=== PATIENT | female | born 1945 | race Hispanic/Latino ===

== ENCOUNTER 2019-09-13 21:29 | Inpatient (IN) | payer MEDICARE ==
[2019-09-13] MEDS ORDERED: MELATONIN 5 MG TAB PO PRN (22:09)
[2019-09-13] MEDS ORDERED: hydrOXYzine HCL 25 MG TAB PO PRN (22:19)
--- NOTE | 2019-09-14 06:54 | History and Physical Report ---
GP History & Physical - History of Present Illness Date of admission: 09/14/19 Date of Examination: 09/14/19 Reason for Admission: Danger to self Chief Complaint: Depression History of Present Illness: Per Communication Nurse: 74 Y/O WF A&OX4 present with worsening anxiety and depression due to being isolated at [facility] regarding COVID-19 pandemic. Per referral source, pt has been for a long time having issue with anxiety until COVID that warrants isolation of residential residents which exacerbates her anxiety. Pt wishes at the ED that she can due to her medical comorbidities. Pt endorses having Advance Directive and her DNR status noted in the medical record. Reports her legal guardian is her sister, Geri Luis [phone]. Pt feels hopeless and no motivation. Pt arrived the unit with nasal Canula in place. The EMS transporters reports she has been on O2 at 2 liters until they took her off it in the parking lot when bringing her up. O2Sat.fluctuating between 89 and 91 on room air. O2Sat 99% when placed back on O2 at 3 liters. Pt noted with PMH of COPD, CHF, AFIB, SOB, Dementia, HTN, Pancreas Cyst, and Pneumonia. Calm and cooperative during interview. Denied to the report writer SI and HI. Denies pain. No behavioral issue noted or reported. We will continue to monitor. HPI Patient is a 74-year-old female with past psychiatric history of anxiety and depression in past medical history of COPD status post currently on oxygen and other multiple comorbidities who presents today from residential with chief complaint of worsening anxiety and depression. Patient reported being at the residential and isolated from everything has made her depression to worsen with increasing anxiety. She reports poor sleep in the last couple of days, but normal appetite and she denies SI and HI. PAST PSYCHIATRIC HISTORY Diagnoses: Anxiety and Depression Suicide attempts or Self-harm behavior: none reported Prior psychiatric hospitalizations: Not available Substance Abuse history: none reported Previous psychiatric medications tried: Yes Outpatient treatment: none reported PAST MEDICAL HISTORY: COPD, CHF, AFIB and SOB Family Psychiatric History: None reported or documented SOCIAL HISTORY Marital Status: Living Arrangements: correction Employment Status: disabled Access to guns/weapons: none reported Education: High school History of Abuse: none reported Legal History: none reported REVIEW OF SYSTEMS Constitutional: Negative for weight loss ENT: Negative for stridor Respiratory: Shortness of breath due to COPD on Oxygen 3L nasal All other systems reviewed and are negative MENTAL STATUS EXAMINATION General Appearance and Behavior: Age appropriate, poor/fair/good hygiene, wearing appropriate clothes, good eye contact, cooperative with questioning and polite Cooperation: Participating/engaged Psychomotor Behavior: unremarkable and within normal limits Mood: "Fair, not really good" Affect and affective range:anxious, depresse Thought Process: Fluent/Logical Thought Content: Within reality Speech: Normal volume, Regular rate and rhythm Intellectual Functioning: Average Suicidal Ideation: Suicidal Homicidal Ideation: Homicidal Impulse Control: Unimpaired Insight and Judgment: Normal insight and judgment Memory: Normal Attention: Normal Orientation: Alert, oriented Assessment and Plan - Psychiatric problem (1) MDD (major depressive disorder) Current Visit: Yes Status: Acute (2) Generalized anxiety disorder Current Visit: Yes Status: Acute Treatment Plan: Patient started on Prozac and Klonopin .25mg once a day Patient will be admitted for inpatient psychiatric evaluation, medication adjustment and close monitoring The patient's behavior, mood, sleep and appetite will be closely monitored. Patient will be enrolled in individual and group therapeutic sessions and encouraged to attend. Patient will be provided with a safe and structured environment. Patient's physical health needs will be addressed by the Hospitalist. Hospitalist Consulted Labs including CBC, CMP, Lipid profile and Hemoglobin A1C ordered Social Assessment will be completed and the Application Spec will work with patient and family to ensure a suitable and safe disposition Medication adjustment will be made as clinically indicated Usual Wellness Holiness/Preservation: - Start Melatonin 5 mg po QHS to promote circadian rhythm - Start [place]-3 for brain health, reduce impulsivity, and as adjunctive treatment for mood disorder, continue upon discharge given overall benefits. The patient agreed on the treatment plan, understood the risk, benefit, alternative treatment, potential consequence of no treatment, and gave informed consent. This is an acknowledgement statement that ISSA CARRILLO is a 74 year old F who requires inpatient psychiatric admission for treatment which could reasonably be expected to improve the patient's condition for Estimated period of time patient will need to remain in the hospital: [7 ] Plan for post-hospital care: [ correction] Legal Status: Voluntary Patient Problems: Current Active Problems Generalized anxiety disorder (Acute) MDD (major depressive disorder) (Acute) Reaction to Hospitalization: Accepting Medications and Allergies Allergies Allergy/AdvReac Type Severity Reaction Status Date / Time No Known Drug Allergies Allergy Unknown Verified 09/13/19 21:50 Home Medications Medication Instructions Recorded Confirmed Last Taken Type Albuterol INH(or & Nicu Only) 90 mcg INHALATION Q4H PRN 09/14/19 09/14/19 Unknown History [ProAir HFA Inhaler] Budesonide [Pulmicort Respules] 0.5 neb BID 09/14/19 09/14/19 Unknown History Digoxin 250 mcg PO DAILY 09/14/19 09/14/19 Unknown History Docusate Sodium [Colace CAP] 100 mg PO BID 09/14/19 09/14/19 Unknown History FLUoxetine HCL [PROzac] 40 mg PO QDAY 09/14/19 09/14/19 Unknown History Flecainide [Tambocor] 50 mg PO BID 09/14/19 09/14/19 Unknown History Gabapentin 300 mg PO TID 09/14/19 09/14/19 Unknown History Metoprolol [Lopressor TAB] 50 mg PO DAILY 09/14/19 09/14/19 Unknown History QUEtiapine 50 mg PO HS 09/14/19 09/14/19 Unknown History methIMAzole [Tapazole] 5 mg PO DAILY 09/14/19 09/14/19 Unknown History traZODone 50 mg PO HS 09/14/19 09/14/19 Unknown History Active Meds: Active Medications Flecainide Acetate (Tambocor) 50 mg PO Q12HR [facility] Fluoxetine HCl (Prozac) 40 mg PO QDAY [facility] Gabapentin (Gabapentin) 300 mg PO TID [facility] Hydroxyzine HCl (Atarax) 25 mg PO Q6H PRN PRN Reason: Itching Melatonin (Melatonin) 5 mg PO QHS PRN PRN Reason: Sleep Methimazole (Tapazole) 5 mg PO DAILY [facility] Metoprolol Succinate (Metoprolol Xl) 50 mg PO BID [facility] Quetiapine Fumarate (Seroquel) 50 mg PO QHS [facility] Trazodone HCl (Desyrel) 50 mg PO QHS [facility] Results - Results Labs/Vitals: Last Vital Signs Temp 97.6 F 09/14/19 01:54 Pulse 59 L 09/14/19 01:54 Resp 18 09/14/19 01:54 BP 110/60 09/14/19 01:54 Pulse Ox 91 05/19/20 01:54 Physical Examination - Constitutional Vitals: Vital Signs Temp Pulse Resp BP Pulse Ox 97.6 F 59 L 18 110/60 91 09/14/19 01:54 09/14/19 01:54 09/14/19 01:54 09/14/19 01:54 09/14/19 01:54 Temperature -Last 24 Hours Temperature 97.6 F Mental Status Exam - Vital signs Last Vital Signs Temp 97.6 F 09/14/19 01:54 Pulse 59 L 09/14/19 01:54 Resp 18 09/14/19 01:54 BP 110/60 09/14/19 01:54 Pulse Ox 91 09/14/19 01:54 Assessment and Plan - Psychiatric problem (1) MDD (major depressive disorder) Current Visit: Yes Status: Acute (2) Generalized anxiety disorder Current Visit: Yes Status: Acute Physician Certification - Certification Statement Physician Certification Statement: This is an acknowledgement statement that ISSA CARRILLO is a 74 year old F who requires inpatient psychiatric admission for treatment which could reasonably be expected to improve the patient's condition for Estimated period of time patient will need to remain in the hospital: [ ] Plan for post-hospital care: [ ]
[2019-09-14 07:30] LABS: Basophils % (Auto) 0.7 % (0.0-1.8); Eosinophils # (Auto) 0.3 K/mm3 (0.0-0.4); Eosinophils % (Auto) 3.5 % (0.0-4.3); Hematocrit 40.7 % (30.3-42.9); Hemoglobin 13.6 gm/dl (10.1-14.3); Lymphocytes # (Auto) 1.8 K/mm3 (1.2-5.4); Lymphocytes % (Auto) 25.4 % (13.4-35.0); Mean Corpuscular HGB Conc 34 % (30-34); Mean Corpuscular Volume 88 fl (79-97); Monocytes # (Auto) 0.6 K/mm3 (0.0-0.8); Platelet Count 232 K/mm3 (140-440); Red Cell Distribution Width 14.2 % (13.2-15.2)
[2019-09-14 07:54] LABS: Alanine Aminotransferase 11 units/L (7-56); Albumin 3.8 g/dL (3.9-5); BUN/Creatinine Ratio 12; Blood Urea Nitrogen 11 mg/dL (7-17); Calcium 9.6 mg/dL (8.4-10.2); Chol/HDL Ratio 4.62 %; HDL Cholesterol 43 mg/dL (40-59); Hemolysis Index 8; LDL Cholesterol,Direct 141 mg/dL (50-130)
[2019-09-14] MEDS ORDERED: FLUoxetine 20 MG CAP PO SCH (10:00)
[2019-09-14] MEDS: FLECAINIDE 100 MG TAB PO SCH ×2 (11:29→21:31)
[2019-09-14] MEDS: GABAPENTIN 300 MG CAP PO SCH ×3 (11:29→21:30)
[2019-09-14] MEDS: METOPROLOL SUCCINATE XL 50 MG TAB PO SCH ×2 (11:30→21:29)
[2019-09-14] MEDS: FUROSEMIDE 20 MG TAB PO SCH (11:30)
[2019-09-14] MEDS: methIMAzole 5 MG TAB PO SCH (11:31)
[2019-09-14] MEDS ORDERED: clonazePAM 0.5 MG TAB PO PRN (12:00)
[2019-09-14] MEDS ORDERED: hydrOXYzine HCL 25 MG TAB PO SCH (12:00)
[2019-09-14] MEDS: POTASSIUM CHLORIDE ER 10 MEQ TAB PO SCH (13:05)
[2019-09-14] MEDS: hydrOXYzine HCL 25 MG TAB PO SCH ×2 (13:05→21:30)
[2019-09-14] MEDS: FLUoxetine 20 MG/5 ML ORAL LIQD PO SCH (13:06)
[2019-09-14] MEDS: OMEGA-3 FATTY ACIDS/FISH OIL 1 GRAM CAP PO SCH ×2 (13:13→21:28)
--- NOTE | 2019-09-14 14:38 | Consultation ---
History of Present Illness - Reason for Consult Consult date: 09/14/19 Hypertension, COPD Requesting physician: LEAH LINDSAY - History of Present Illness Patient is a 74-year-old female with past psychiatric history of anxiety and depression, medical history of hypertension, hyperthyroidism and COPD. She has been admitted to GeriPsych Unit with chief complaint of worsening anxiety and depression. Patient reported being at the assisted and isolated from everything has made her depression to worsen with increasing anxiety. The hospitalist service has been consulted for management of medical comorbidities: hypertension, COPD. Currently denies headache, chest pain or shortness of breath. Past History Past Medical History: COPD, hypertension, hypothyroidism Past Surgical History: No surgical history Social history: Family history: no significant family history Medications and Allergies Allergies Allergy/AdvReac Type Severity Reaction Status Date / Time No Known Drug Allergies Allergy Unknown Verified 09/13/19 21:50 Home Medications Medication Instructions Recorded Confirmed Last Taken Type Albuterol INH(or & Nicu Only) 90 mcg INHALATION Q4H PRN 09/14/19 09/14/19 Unknown History [ProAir HFA Inhaler] Budesonide [Pulmicort Respules] 0.5 neb BID 09/14/19 09/14/19 Unknown History Digoxin 250 mcg PO DAILY 09/14/19 09/14/19 Unknown History Docusate Sodium [Colace CAP] 100 mg PO BID 09/14/19 09/14/19 Unknown History FLUoxetine HCL [PROzac] 40 mg PO QDAY 09/14/19 09/14/19 Unknown History Flecainide [Tambocor] 50 mg PO BID 09/14/19 09/14/19 Unknown History Gabapentin 300 mg PO TID 09/14/19 09/14/19 Unknown History Metoprolol [Lopressor TAB] 50 mg PO DAILY 09/14/19 09/14/19 Unknown History QUEtiapine 50 mg PO HS 09/14/19 09/14/19 Unknown History methIMAzole [Tapazole] 5 mg PO DAILY 09/14/19 09/14/19 Unknown History traZODone 50 mg PO HS 09/14/19 09/14/19 Unknown History Active Meds: Active Medications Clonazepam (Klonopin) 0.25 mg PO QDAY PRN PRN Reason: Anxiety Fish Oil (Fish Oil) 2,000 mg PO BID [facility] Last Admin: 09/14/19 13:13 Dose: 2,000 mg Documented by: Flecainide Acetate (Tambocor) 50 mg PO Q12HR [facility] Last Admin: 09/14/19 11:29 Dose: 50 mg Documented by: Fluoxetine HCl (Prozac) 20 mg PO QDAY [facility] Last Admin: 09/14/19 13:06 Dose: 20 mg Documented by: Furosemide (Lasix) 20 mg PO QDAY [facility] Last Admin: 09/14/19 11:30 Dose: 20 mg Documented by: Gabapentin (Gabapentin) 300 mg PO TID [facility] Last Admin: 09/14/19 14:20 Dose: 300 mg Documented by: Hydroxyzine HCl (Atarax) 25 mg PO TID [facility] Last Admin: 09/14/19 13:05 Dose: 25 mg Documented by: Loperamide HCl (Imodium) 2 mg PO Q2H PRN PRN Reason: Diarrhea Melatonin (Melatonin) 5 mg PO QHS PRN PRN Reason: Sleep Methimazole (Tapazole) 5 mg PO DAILY [facility] Last Admin: 09/14/19 11:31 Dose: 5 mg Documented by: Metoprolol Succinate (Metoprolol Xl) 50 mg PO BID [facility] Last Admin: 09/14/19 11:30 Dose: 50 mg Documented by: Potassium Chloride (K-Dur) 10 meq PO QDAY [facility] Last Admin: 09/14/19 13:05 Dose: 10 meq Documented by: Tiotropium [place] (Spiriva) 1 puff IH Q24HRT [facility] Review of Systems All systems: negative (No headache, no fever, no abd pain. All other systems reviewed and are negative) Exam - Physical Exam Narrative exam: GEN: Not in acute distress, sitting up in chair HEENT: Normocephalic, atraumatic, Neck: supple, No JVD Lungs: Clear to auscultation bilaterally, heart;S1 and S2 reg, no murmurs, rubs or gallop Abd:soft, non tender, non distended, normal bowel sounds, Ext: No edema, no clubbing, no cyanosis, Neuro: Awake,alert,oriented X3 , no focal signs, - Constitutional Vitals: Temp Pulse Resp BP Pulse Ox 97.6 F 59 L 18 110/60 91 09/14/19 01:54 09/14/19 01:54 09/14/19 01:54 09/14/19 01:54 09/14/19 01:54 Results - Labs CBC & Chem 7: 09/14/19 07:19 09/17/19 04:39 Labs: Abnormal lab results 09/14/19 09/14/19 Range/Units 07:19 07:19 [place] % (Auto) 9.0 H (0.0-7.3) % Chloride 97.5 L (98-107) mmol/L Glucose 104 H (65-100) mg/dL Albumin 3.8 L (3.9-5) g/dL LDL Cholesterol Direct 141 H (50-130) mg/dL Assessment and Plan Anxiety and Depression. Admitted to GeriPsych Unit Psychiatry attending Hypertension Resume home meds Monitor BP COPD Monitor for symptoms Hyperthyroidism On Tapazole Patient on Flecainide so likely has history cardiac arrhythmia Thanks for consulting us, Dr. Salcido
[2019-09-14] MEDS: LOPERAMIDE 2 MG CAP PO PRN (15:56)
[2019-09-14] MEDS: TIOTROPIUM 18 MCG CAP INHALATION IH SCH (15:57)
[2019-09-14] MEDS ORDERED: traZODone 50 MG TAB PO SCH (22:00)
[2019-09-14] MEDS ORDERED: QUEtiapine 25 MG TAB PO SCH (22:00)
[2019-09-15] MEDS: LOPERAMIDE 2 MG CAP PO PRN ×2 (04:50→11:48)
--- NOTE | 2019-09-15 06:58 | Progress Note ---
Subjective Date of service: 09/15/19 Principal diagnosis: MDD (major depressive disorder), General Anxiety Subjective Comment: Nurse Note: Pt is observed in the activity room interacting with peers but maintaining social distancing. Pt c/o feeling slightly anxious but shows no s/s of distress. She is able to verbalize he needs. She continues on O2 via n/c. Will continue to monitor q 15 min for safety. Psych Progres Pleasant Miss Cavazos was interviewed by me this AM. She complaints her anxiety and nerves acting up this AM, says current meds dont seem to be helping. She reports constant fear, cause unknown. and also complains about hearing things. She reports sleep has good but concerned her medication might also be causing diarrhea Reason for continuing inpatient psychiatric hospitalization: Persistent anxiety, hearing things and depressed mood. Concern for medication induced diarrhea. Will adjust meds MENTAL STATUS EXAMINATION General Appearance and Behavior: Age appropriate, poor/fair/good hygiene, wearing appropriate clothes, good eye contact, cooperative with questioning and polite Cooperation: Participating/engaged Psychomotor Behavior: unremarkable and within normal limits Mood: "Fair, not really good" Affect and affective range:anxious, depresse Thought Process: Fluent/Logical Thought Content: Within reality Speech: Normal volume, Regular rate and rhythm Intellectual Functioning: Average Suicidal Ideation: Suicidal Homicidal Ideation: Homicidal Impulse Control: Unimpaired Insight and Judgment: Normal insight and judgment Memory: Normal Attention: Normal Orientation: Alert, oriented Assessment and Plan - Psychiatric problem (1) MDD (major depressive disorder) Current Visit: Yes Status: Acute (2) Generalized anxiety disorder Current Visit: Yes Status: Acute Treatment Plan: Klonopin .25mg BID. Hospitalist to see patient for diarrhea consult Patient will be admitted for inpatient psychiatric evaluation, medication adjustment and close monitoring The patient's behavior, mood, sleep and appetite will be closely monitored. Patient will be enrolled in individual and group therapeutic sessions and encouraged to attend. Patient will be provided with a safe and structured environment. Patient's physical health needs will be addressed by the Hospitalist. Hospitalist Consulted Labs including CBC, CMP, Lipid profile and Hemoglobin A1C ordered Social Assessment will be completed and the School Age Program Teacher will work with patient and family to ensure a suitable and safe disposition Medication adjustment will be made as clinically indicated Usual Wellness Hinduism/Preservation: - Start Melatonin 5 mg po QHS to promote circadian rhythm - Start [place]-3 for brain health, reduce impulsivity, and as adjunctive treatm ent for mood disorder, continue upon discharge given overall benefits. The patient agreed on the treatment plan, understood the risk, benefit, alternative treatment, potential consequence of no treatment, and gave informed consent. This is an acknowledgement statement that ISSA CARRILLO is a 74 year old F who requires inpatient psychiatric admission for treatment which could reasonably be expected to improve the patient's condition for Estimated period of time patient will need to remain in the hospital: [7 ] Plan for post-hospital care: [ long term] Assessment and Plan - Patient Problems (1) MDD (major depressive disorder) Current Visit: Yes Status: Acute (2) Generalized anxiety disorder Current Visit: Yes Status: Acute Medications and Allergies Allergies Allergy/AdvReac Type Severity Reaction Status Date / Time No Known Drug Allergies Allergy Unknown Verified 09/13/19 21:50 Home Medications Medication Instructions Recorded Confirmed Last Taken Type Albuterol INH(or & Nicu Only) 90 mcg INHALATION Q4H PRN 09/14/19 09/14/19 Unknown History [ProAir HFA Inhaler] Budesonide [Pulmicort Respules] 0.5 neb BID 09/14/19 09/14/19 Unknown History Digoxin 250 mcg PO DAILY 09/14/19 09/14/19 Unknown History Docusate Sodium [Colace CAP] 100 mg PO BID 09/14/19 09/14/19 Unknown History FLUoxetine HCL [PROzac] 40 mg PO QDAY 09/14/19 09/14/19 Unknown History Flecainide [Tambocor] 50 mg PO BID 09/14/19 09/14/19 Unknown History Gabapentin 300 mg PO TID 09/14/19 09/14/19 Unknown History Metoprolol [Lopressor TAB] 50 mg PO DAILY 09/14/19 09/14/19 Unknown History QUEtiapine 50 mg PO HS 09/14/19 09/14/19 Unknown History methIMAzole [Tapazole] 5 mg PO DAILY 09/14/19 09/14/19 Unknown History traZODone 50 mg PO HS 09/14/19 09/14/19 Unknown History Active Meds: Active Medications Clonazepam (Klonopin) 0.25 mg PO QDAY PRN PRN Reason: Anxiety Fish Oil (Fish Oil) 2,000 mg PO BID [facility] Last Admin: 09/14/19 21:28 Dose: 2,000 mg Documented by: Flecainide Acetate (Tambocor) 50 mg PO Q12HR [facility] Last Admin: 09/14/19 21:31 Dose: 50 mg Documented by: Fluoxetine HCl (Prozac) 20 mg PO QDAY [facility] Last Admin: 09/14/19 13:06 Dose: 20 mg Documented by: Furosemide (Lasix) 20 mg PO QDAY [facility] Last Admin: 09/14/19 11:30 Dose: 20 mg Documented by: Gabapentin (Gabapentin) 300 mg PO TID [facility] Last Admin: 09/14/19 21:30 Dose: 300 mg Documented by: Hydroxyzine HCl (Atarax) 25 mg PO TID [facility] Last Admin: 09/14/19 21:30 Dose: 25 mg Documented by: Loperamide HCl (Imodium) 2 mg PO Q2H PRN PRN Reason: Diarrhea Last Admin: 09/15/19 04:50 Dose: 2 mg Documented by: Melatonin (Melatonin) 5 mg PO QHS PRN PRN Reason: Sleep Methimazole (Tapazole) 5 mg PO DAILY [facility] Last Admin: 09/14/19 11:31 Dose: 5 mg Documented by: Metoprolol Succinate (Metoprolol Xl) 50 mg PO BID [facility] Last Admin: 09/14/19 21:29 Dose: 50 mg Documented by: Potassium Chloride (K-Dur) 10 meq PO QDAY [facility] Last Admin: 09/14/19 13:05 Dose: 10 meq Documented by: Tiotropium [place] (Spiriva) 1 puff IH Q24HRT [facility] Last Admin: 09/14/19 15:57 Dose: 1 puff Documented by: Results - Results Labs/Vitals: Laboratory Last Values WBC 7.2 K/mm3 (4.5-11.0) 09/14/19 07:19 RBC 4.60 M/mm3 (3.65-5.03) 09/14/19 07:19 Hgb 13.6 gm/dl (10.1-14.3) 09/14/19 07:19 Hct 40.7 % (30.3-42.9) 09/14/19 07:19 MCV 88 fl (79-97) 09/14/19 07:19 MCH 30 pg (28-32) 09/14/19 07:19 MCHC 34 % (30-34) 09/14/19 07:19 RDW 14.2 % (13.2-15.2) 09/14/19 07:19 Plt Count 232 K/mm3 (140-440) 09/14/19 07:19 Lymph % (Auto) 25.4 % (13.4-35.0) 09/14/19 07:19 [place] % (Auto) 9.0 % (0.0-7.3) H 09/14/19 07:19 Eos % (Auto) 3.5 % (0.0-4.3) 09/14/19 07:19 Baso % (Auto) 0.7 % (0.0-1.8) 09/14/19 07:19 Lymph # 1.8 K/mm3 (1.2-5.4) 09/14/19 07:19 [place] # 0.6 K/mm3 (0.0-0.8) 09/14/19 07:19 Eos # 0.3 K/mm3 (0.0-0.4) 09/14/19 07:19 Baso # 0.0 K/mm3 (0.0-0.1) 09/14/19 07:19 Seg Neutrophils % 61.4 % (40.0-70.0) 09/14/19 07:19 Seg Neutrophils # 4.4 K/mm3 (1.8-7.7) 09/14/19 07:19 Sodium 138 mmol/L (137-145) 09/14/19 07:19 Potassium 4.1 mmol/L (3.6-5.0) 09/14/19 07:19 Chloride 97.5 mmol/L (98-107) L 09/14/19 07:19 Carbon Dioxide 28 mmol/L (22-30) 09/14/19 07:19 Anion Gap 17 mmol/L 09/14/19 07:19 BUN 11 mg/dL (7-17) 09/14/19 07:19 Creatinine 0.9 mg/dL (0.7-1.2) 09/14/19 07:19 Estimated GFR > 60 ml/min 09/14/19 07:19 BUN/Creatinine Ratio 12 % 09/14/19 07:19 Glucose 104 mg/dL (65-100) H 09/14/19 07:19 POC Glucose 99 (70-105) 09/14/19 01:16 Hemoglobin A1c 5.4 % (4-6) 09/14/19 07:19 Calcium 9.6 mg/dL (8.4-10.2) 09/14/19 07:19 Total Bilirubin 0.50 mg/dL (0.1-1.2) 09/14/19 07:19 AST 16 units/L (5-40) 09/14/19 07:19 ALT 11 units/L (7-56) 09/14/19 07:19 Alkaline Phosphatase 82 units/L (35-129) 09/14/19 07:19 Total Protein 7.2 g/dL (6.3-8.2) 09/14/19 07:19 Albumin 3.8 g/dL (3.9-5) L 09/14/19 07:19 Albumin/Globulin Ratio 1.1 % 09/14/19 07:19 Triglycerides 125 mg/dL (2-149) 09/14/19 07:19 Cholesterol 199 mg/dL (50-199) 09/14/19 07:19 LDL Cholesterol Direct 141 mg/dL (50-130) H 09/14/19 07:19 HDL Cholesterol 43 mg/dL (40-59) 09/14/19 07:19 Cholesterol/HDL Ratio 4.62 % 09/14/19 07:19 TSH 1.630 mlU/mL (0.270-4.200) 09/14/19 07:19 Last Vital Signs Temp 98.0 F 09/14/19 09:15 Pulse 87 09/14/19 21:29 Resp 18 09/14/19 09:15 BP 173/79 09/14/19 21:29 Pulse Ox 95 09/14/19 19:29
[2019-09-15] MEDS: GABAPENTIN 300 MG CAP PO SCH ×3 (07:57→19:23)
[2019-09-15] MEDS: hydrOXYzine HCL 25 MG TAB PO SCH ×3 (07:57→19:23)
[2019-09-15] MEDS: FUROSEMIDE 20 MG TAB PO SCH (11:02)
[2019-09-15] MEDS: POTASSIUM CHLORIDE ER 10 MEQ TAB PO SCH (11:03)
[2019-09-15] MEDS: methIMAzole 5 MG TAB PO SCH (11:03)
[2019-09-15] MEDS: FLUoxetine 20 MG/5 ML ORAL LIQD PO SCH (11:03)
[2019-09-15] MEDS: FLECAINIDE 100 MG TAB PO SCH ×2 (11:03→21:25)
[2019-09-15] MEDS: METOPROLOL SUCCINATE XL 50 MG TAB PO SCH ×2 (11:04→21:27)
[2019-09-15] MEDS: clonazePAM 0.5 MG TAB PO SCH ×2 (11:04→21:26)
[2019-09-15] MEDS: OMEGA-3 FATTY ACIDS/FISH OIL 1 GRAM CAP PO SCH ×2 (11:48→21:23)
[2019-09-15] MEDS: TIOTROPIUM 18 MCG CAP INHALATION IH SCH (18:26)
[2019-09-16] MEDS ORDERED: ACETAMINOPHEN 325 MG TAB PO PRN (05:40)
[2019-09-16] MEDS: LOPERAMIDE 2 MG CAP PO PRN (06:13)
--- NOTE | 2019-09-16 06:59 | Progress Note ---
Subjective Date of service: 09/16/19 Principal diagnosis: MDD (major depressive disorder), General Anxiety Subjective Comment: Nurse Note: pt spent her evening in activity room watching television, pt is alert and orientedx4, calm and cooperative, interacts appropriately with staff and selected peers, reported feeling less anxious, able to make needs known, good appetite, medication compliant, blood pressure medication held due to decreased b/p of 104/52, hospitalist paged to report med was held, no call from hospitalist yet, no complaints voiced, no distress noted, will continue to monitor for safety, safety maintained; remains on 02 3litres n/c continuous. Psych Progres Patient says she is still "very sad and anxious" does not know why and does not even know which facility she is in and she began crying. Patient she cant relax, has poor sleep last night and feels like people are always letting her down especially family because she has been through so much. She says she remember leaving home to go to hospital for breathing issues and her brother told her not to come home and she should rather just go . She also reports being worried about her medical problem and not getting healthier. Reason for continuing inpatient psychiatric hospitalization: Persistent anxiety, hearing things and depressed mood. Patient also complains of stomach discomfort. Hospitalist consult placed to see patient. MENTAL STATUS EXAMINATION General Appearance and Behavior: Age appropriate, poor/fair/good hygiene, wearing appropriate clothes, good eye contact, cooperative with questioning and polite Cooperation: Participating/engaged Psychomotor Behavior: unremarkable and within normal limits Mood: "Fair, not really good" Affect and affective range:anxious, depressed, labile Thought Process: Fluent/Logical Thought Content: Within reality Speech: Normal volume, Regular rate and rhythm Intellectual Functioning: Average Suicidal Ideation: Suicidal Homicidal Ideation: Homicidal Impulse Control: Unimpaired Insight and Judgment: Normal insight and judgment Memory: Normal Attention: Normal Orientation: Alert, oriented Assessment and Plan - Psychiatric problem (1) MDD (major depressive disorder) Current Visit: Yes Status: Acute (2) Generalized anxiety disorder Current Visit: Yes Status: Acute Treatment Plan: Continue current meds, hospitalist to see patient for stomach discomfort. Patient will be admitted for inpatient psychiatric evaluation, medication adjustment and close monitoring The patient's behavior, mood, sleep and appetite will be closely monitored. Patient will be enrolled in individual and group therapeutic sessions and encouraged to attend. Patient will be provided with a safe and structured environment. Patient's physical health needs will be addressed by the Hospitalist. Hospitalist Consulted Labs including CBC, CMP, Lipid profile and Hemoglobin A1C ordered Social Assessment will be completed and the Manager Nursing Home will work with patient and family to ensure a suitable and safe disposition Medication adjustment will be made as clinically indicated Usual Wellness Adventism/Preservation: - Start Melatonin 5 mg po QHS to promote circadian rhythm - Start [place]-3 for brain health, reduce impulsivity, and as adjunctive treatment for mood disorder, continue upon discharge given overall benefits. The patient agreed on the treatment plan, understood the risk, benefit, alternative treatment, potential consequence of no treatment, and gave informed consent. This is an acknowledgement statement that ISSA CARRILLO is a 74 year old F who requires inpatient psychiatric admission for treatment which could reasonably be expected to improve the patient's condition for Estimated period of time patient will need to remain in the hospital: [5] Plan for post-hospital care: [ residential] Assessment and Plan - Patient Problems (1) MDD (major depressive disorder) Current Visit: Yes Status: Acute (2) Generalized anxiety disorder Current Visit: Yes Status: Acute Medications and Allergies Allergies Allergy/AdvReac Type Severity Reaction Status Date / Time No Known Drug Allergies Allergy Unknown Verified 09/13/19 21:50 Home Medications Medication Instructions Recorded Confirmed Last Taken Type Albuterol INH(or & Nicu Only) 90 mcg INHALATION Q4H PRN 09/14/19 09/14/19 Unknown History [ProAir HFA Inhaler] Budesonide [Pulmicort Respules] 0.5 neb BID 09/14/19 09/14/19 Unknown History Digoxin 250 mcg PO DAILY 09/14/19 09/14/19 Unknown History Docusate Sodium [Colace CAP] 100 mg PO BID 09/14/19 09/14/19 Unknown History FLUoxetine HCL [PROzac] 40 mg PO QDAY 09/14/19 09/14/19 Unknown History Flecainide [Tambocor] 50 mg PO BID 09/14/19 09/14/19 Unknown History Gabapentin 300 mg PO TID 09/14/19 09/14/19 Unknown History Metoprolol [Lopressor TAB] 50 mg PO DAILY 09/14/19 09/14/19 Unknown History QUEtiapine 50 mg PO HS 09/14/19 09/14/19 Unknown History methIMAzole [Tapazole] 5 mg PO DAILY 09/14/19 09/14/19 Unknown History traZODone 50 mg PO HS 09/14/19 09/14/19 Unknown History Active Meds: Active Medications Acetaminophen (Tylenol) 650 mg PO Q6H PRN PRN Reason: Pain, Mild (1-3) Last Admin: 09/16/19 06:11 Dose: 650 mg Documented by: Clonazepam (Klonopin) 0.25 mg PO BID [facility] Last Admin: 09/15/19 21:26 Dose: 0.25 mg Documented by: Fish Oil (Fish Oil) 2,000 mg PO BID [facility] Last Admin: 09/15/19 21:23 Dose: 2,000 mg Documented by: Flecainide Acetate (Tambocor) 50 mg PO Q12HR [facility] Last Admin: 09/15/19 21:25 Dose: 50 mg Documented by: Fluoxetine HCl (Prozac) 20 mg PO QDAY [facility] Last Admin: 09/15/19 11:03 Dose: 20 mg Documented by: Furosemide (Lasix) 20 mg PO QDAY [facility] Last Admin: 09/15/19 11:02 Dose: 20 mg Documented by: Gabapentin (Gabapentin) 300 mg PO TID [facility] Last Admin: 09/15/19 19:23 Dose: 300 mg Documented by: Hydroxyzine HCl (Atarax) 25 mg PO TID [facility] Last Admin: 09/15/19 19:23 Dose: 25 mg Documented by: Loperamide HCl (Imodium) 2 mg PO Q2H PRN PRN Reason: Diarrhea Last Admin: 09/16/19 06:13 Dose: 2 mg Documented by: Melatonin (Melatonin) 5 mg PO QHS PRN PRN Reason: Sleep Methimazole (Tapazole) 5 mg PO DAILY [facility] Last Admin: 09/15/19 11:03 Dose: 5 mg Documented by: Metoprolol Succinate (Metoprolol Xl) 50 mg PO BID [facility] Last Admin: 09/15/19 21:27 Dose: Not Given Documented by: Potassium Chloride (K-Dur) 10 meq PO QDAY [facility] Last Admin: 09/15/19 11:03 Dose: 10 meq Documented by: Tiotropium [place] (Spiriva) 1 puff IH Q24HRT [facility] Last Admin: 09/15/19 18:26 Dose: Not Given Documented by: Results - Results Labs/Vitals: Laboratory Last Values WBC 7.2 K/mm3 (4.5-11.0) 09/14/19 07:19 RBC 4.60 M/mm3 (3.65-5.03) 09/14/19 07:19 Hgb 13.6 gm/dl (10.1-14.3) 09/14/19 07:19 Hct 40.7 % (30.3-42.9) 09/14/19 07:19 MCV 88 fl (79-97) 09/14/19 07:19 MCH 30 pg (28-32) 09/14/19 07:19 MCHC 34 % (30-34) 09/14/19 07:19 RDW 14.2 % (13.2-15.2) 09/14/19 07:19 Plt Count 232 K/mm3 (140-440) 09/14/19 07:19 Lymph % (Auto) 25.4 % (13.4-35.0) 09/14/19 07:19 [place] % (Auto) 9.0 % (0.0-7.3) H 09/14/19 07:19 Eos % (Auto) 3.5 % (0.0-4.3) 09/14/19 07:19 Baso % (Auto) 0.7 % (0.0-1.8) 09/14/19 07:19 Lymph # 1.8 K/mm3 (1.2-5.4) 09/14/19 07:19 [place] # 0.6 K/mm3 (0.0-0.8) 09/14/19 07:19 Eos # 0.3 K/mm3 (0.0-0.4) 09/14/19 07:19 Baso # 0.0 K/mm3 (0.0-0.1) 09/14/19 07:19 Seg Neutrophils % 61.4 % (40.0-70.0) 09/14/19 07:19 Seg Neutrophils # 4.4 K/mm3 (1.8-7.7) 09/14/19 07:19 Sodium 138 mmol/L (137-145) 09/14/19 07:19 Potassium 4.1 mmol/L (3.6-5.0) 09/14/19 07:19 Chloride 97.5 mmol/L (98-107) L 09/14/19 07:19 Carbon Dioxide 28 mmol/L (22-30) 09/14/19 07:19 Anion Gap 17 mmol/L 09/14/19 07:19 BUN 11 mg/dL (7-17) 09/14/19 07:19 Creatinine 0.9 mg/dL (0.7-1.2) 09/14/19 07:19 Estimated GFR > 60 ml/min 09/14/19 07:19 BUN/Creatinine Ratio 12 % 09/14/19 07:19 Glucose 104 mg/dL (65-100) H 09/14/19 07:19 POC Glucose 99 (70-105) 09/14/19 01:16 Hemoglobin A1c 5.4 % (4-6) 09/14/19 07:19 Calcium 9.6 mg/dL (8.4-10.2) 09/14/19 07:19 Total Bilirubin 0.50 mg/dL (0.1-1.2) 09/14/19 07:19 AST 16 units/L (5-40) 09/14/19 07:19 ALT 11 units/L (7-56) 09/14/19 07:19 Alkaline Phosphatase 82 units/L (35-129) 09/14/19 07:19 Total Protein 7.2 g/dL (6.3-8.2) 09/14/19 07:19 Albumin 3.8 g/dL (3.9-5) L 09/14/19 07:19 Albumin/Globulin Ratio 1.1 % 09/14/19 07:19 Triglycerides 125 mg/dL (2-149) 09/14/19 07:19 Cholesterol 199 mg/dL (50-199) 09/14/19 07:19 LDL Cholesterol Direct 141 mg/dL (50-130) H 09/14/19 07:19 HDL Cholesterol 43 mg/dL (40-59) 09/14/19 07:19 Cholesterol/HDL Ratio 4.62 % 09/14/19 07:19 TSH 1.630 mlU/mL (0.270-4.200) 09/14/19 07:19 Last Vital Signs Temp 98.1 F 09/15/19 21:40 Pulse 69 09/15/19 21:40 Resp 18 09/16/19 06:11 BP 104/52 09/15/19 21:40 Pulse Ox 95 09/15/19 21:40
[2019-09-16] MEDS: hydrOXYzine HCL 25 MG TAB PO SCH ×3 (08:31→22:06)
[2019-09-16] MEDS: GABAPENTIN 300 MG CAP PO SCH ×3 (08:31→21:35)
[2019-09-16] MEDS: TIOTROPIUM 18 MCG CAP INHALATION IH SCH (09:40)
[2019-09-16] MEDS: methIMAzole 5 MG TAB PO SCH (09:42)
[2019-09-16] MEDS: FLECAINIDE 100 MG TAB PO SCH ×2 (09:42→21:37)
[2019-09-16] MEDS: POTASSIUM CHLORIDE ER 10 MEQ TAB PO SCH (09:43)
[2019-09-16] MEDS: FLUoxetine 20 MG/5 ML ORAL LIQD PO SCH (09:43)
[2019-09-16] MEDS: METOPROLOL SUCCINATE XL 50 MG TAB PO SCH (09:44)
[2019-09-16] MEDS: FUROSEMIDE 20 MG TAB PO SCH (09:53)
[2019-09-16] MEDS: clonazePAM 0.5 MG TAB PO SCH ×2 (09:53→21:00)
[2019-09-16] MEDS: OMEGA-3 FATTY ACIDS/FISH OIL 1 GRAM CAP PO SCH ×2 (09:54→21:00)
[2019-09-16] MEDS: METOPROLOL TARTRATE 50 MG TAB PO SCH (12:47)
[2019-09-16] MEDS: FAMOTIDINE 20 MG TAB PO SCH ×2 (12:47→22:00)
[2019-09-16] MEDS: DOCUSATE SODIUM 100 MG CAP PO SCH ×2 (12:47→21:34)
[2019-09-16] MEDS: DIGOXIN 0.25 MG TAB PO SCH (17:28)
[2019-09-17] MEDS: BUDESONIDE 0.5 MG/2 ML NEBU IH SCH ×2 (00:30→10:30)
[2019-09-17 05:19] LABS: Calcium 9.2 mg/dL (8.4-10.2)
[2019-09-17] MEDS: hydrOXYzine HCL 25 MG TAB PO SCH ×3 (09:45→22:22)
[2019-09-17] MEDS: FUROSEMIDE 20 MG TAB PO SCH (09:46)
[2019-09-17] MEDS: clonazePAM 0.5 MG TAB PO SCH (09:46)
[2019-09-17] MEDS: DOCUSATE SODIUM 100 MG CAP PO SCH ×2 (09:46→22:03)
[2019-09-17] MEDS: FAMOTIDINE 20 MG TAB PO SCH ×2 (09:47→21:58)
[2019-09-17] MEDS: OMEGA-3 FATTY ACIDS/FISH OIL 1 GRAM CAP PO SCH ×2 (09:47→21:58)
[2019-09-17] MEDS: FLUoxetine 20 MG/5 ML ORAL LIQD PO SCH (09:48)
[2019-09-17] MEDS: methIMAzole 5 MG TAB PO SCH (09:48)
[2019-09-17] MEDS: FLECAINIDE 100 MG TAB PO SCH ×2 (09:48→21:57)
[2019-09-17] MEDS: GABAPENTIN 300 MG CAP PO SCH ×3 (09:49→21:56)
--- NOTE | 2019-09-17 09:51 | Progress Note ---
Subjective Date of service: 09/17/19 Principal diagnosis: MDD (major depressive disorder), General Anxiety Subjective Comment: The patient's medical record was reviewed and the patient's progress was discussed with the nursing staff. During my interview with the patient this morning, she is sitting in the dayroom with other patients. She is a/o x 3. She is calm and cooperative. The patient states to me "I woke up dreading to start the day." She says, "I'm depressed. I live at this [facility]pc and I feel so alone." She says "I feel like my people don't care." She says her appetite is "not good." She says "I don't want to eat." The patient verbalizes "seeing shadows at night." She says "at times I think about not wanting to live." Reason for continued inpatient treatment: The patient is depressed, has passive suicidal thoughts, and hallucinates. REVIEW OF SYSTEMS Constitutional: Negative for weight loss ENT: Negative for stridor Respiratory: Negative for cough or hemoptysis All other systems reviewed and are negative MENTAL STATUS EXAMINATION General Appearance: Dressed appropriately Behavior: Calm, cooperative. Mood: "Depressed" Affect: Congruent with stated mood Speech: Normal tome and pace Thought Process: Goal directed Thought Content: Suicidal Ideation: Passive Homicidal Ideation: Denies Hallucinations: Visual Delusions: None elicited Insight and Judgment: Limited Memory/Cognition: Limited Assessment Major Depressive Disorder, Severe with Psychotic Features Treatment Plan Patient will be admitted for inpatient psychiatric evaluation, medication adjustment and close monitoring The patient's behavior, mood, sleep and appetite will be closely monitored. Patient will be enrolled in individual and group therapeutic sessions and encouraged to attend. Patient will be provided with a safe and structured environment. Patient's physical health needs will be addressed by the Hospitalist. Hosp italist Consulted Labs including CBC, CMP, Lipid profile and Hemoglobin A1C ordered Social Assessment will be completed and the Permaculture Contractor will work with patient and family to ensure a suitable and safe disposition Medication adjustment will be made as clinically indicated Usual Wellness Restorationist/Preservation: Increased Prozac 30mg po daily Decreased Klonopin 0.5mg po daily Start Risperidone 0.25mg po daily The patient agreed on the treatment plan, understood the risk, benefit, alternative treatment, potential consequence of no treatment, and gave informed consent. Estimated period of time patient will need to remain in the hospital: [4] Plan for post-hospital care: [Outpatient] Medications and Allergies Allergies Allergy/AdvReac Type Severity Reaction Status Date / Time No Known Drug Allergies Allergy Unknown Verified 09/13/19 21:50 Home Medications Medication Instructions Recorded Confirmed Last Taken Type Albuterol INH(or & Nicu Only) 90 mcg INHALATION Q4H PRN 09/14/19 09/14/19 Unknown History [ProAir HFA Inhaler] Budesonide [Pulmicort Respules] 0.5 neb BID 09/14/19 09/14/19 Unknown History Digoxin 250 mcg PO DAILY 09/14/19 09/14/19 Unknown History Docusate Sodium [Colace CAP] 100 mg PO BID 09/14/19 09/14/19 Unknown History FLUoxetine HCL [PROzac] 40 mg PO QDAY 09/14/19 09/14/19 Unknown History Flecainide [Tambocor] 50 mg PO BID 09/14/19 09/14/19 Unknown History Gabapentin 300 mg PO TID 09/14/19 09/14/19 Unknown History Metoprolol [Lopressor TAB] 50 mg PO DAILY 09/14/19 09/14/19 Unknown History QUEtiapine 50 mg PO HS 09/14/19 09/14/19 Unknown History methIMAzole [Tapazole] 5 mg PO DAILY 09/14/19 09/14/19 Unknown History traZODone 50 mg PO HS 09/14/19 09/14/19 Unknown History Active Meds: Active Medications Acetaminophen (Tylenol) 650 mg PO Q6H PRN PRN Reason: Pain, Mild (1-3) Last Admin: 09/16/19 06:11 Dose: 650 mg Documented by: Budesonide (Pulmicort) 0.5 mg IH BIDRT [facility] Last Admin: 09/17/19 00:30 Dose: Not Given Documented by: Clonazepam (Klonopin) 0.25 mg PO BID [facility] Last Admin: 09/16/19 21:00 Dose: 0.25 mg Documented by: Digoxin (Lanoxin) 0.25 mg PO DAILY@1700 [facility] Last Admin: 09/16/19 17:28 Dose: Not Given Documented by: Docusate Sodium (Colace) 100 mg PO BID [facility] Last Admin: 09/16/19 21:34 Dose: 100 mg Documented by: Famotidine (Pepcid) 20 mg PO BID [facility] Last Admin: 09/16/19 22:00 Dose: 20 mg Documented by: Fish Oil (Fish Oil) 2,000 mg PO BID [facility] Last Admin: 09/16/19 21:00 Dose: 2,000 mg Documented by: Flecainide Acetate (Tambocor) 50 mg PO Q12HR [facility] Last Admin: 09/16/19 21:37 Dose: 50 mg Documented by: Fluoxetine HCl (Prozac) 20 mg PO QDAY [facility] Last Admin: 09/16/19 09:43 Dose: 20 mg Documented by: Furosemide (Lasix) 20 mg PO QDAY [facility] Last Admin: 09/16/19 09:53 Dose: 20 mg Documented by: Gabapentin (Gabapentin) 300 mg PO TID [facility] Last Admin: 09/16/19 21:35 Dose: 300 mg Documented by: Hydroxyzine HCl (Atarax) 25 mg PO TID [facility] Last Admin: 09/16/19 22:06 Dose: 25 mg Documented by: Loperamide HCl (Imodium) 2 mg PO Q2H PRN PRN Reason: Diarrhea Last Admin: 09/16/19 06:13 Dose: 2 mg Documented by: Melatonin (Melatonin) 5 mg PO QHS PRN PRN Reason: Sleep Methimazole (Tapazole) 5 mg PO DAILY [facility] Last Admin: 09/16/19 09:42 Dose: 5 mg Documented by: Metoprolol Tartrate (Metoprolol) 50 mg PO DAILY [facility] Last Admin: 09/16/19 12:47 Dose: Not Given Documented by: Tiotropium [place] (Spiriva) 1 puff IH Q24HRT [facility] Last Admin: 09/16/19 09:40 Dose: 1 puff Documented by: Results - Results Labs/Vitals: Laboratory Last Values WBC 7.2 K/mm3 (4.5-11.0) 09/14/19 07:19 RBC 4.60 M/mm3 (3.65-5.03) 09/14/19 07:19 Hgb 13.6 gm/dl (10.1-14.3) 09/14/19 07:19 Hct 40.7 % (30.3-42.9) 09/14/19 07:19 MCV 88 fl (79-97) 09/14/19 07:19 MCH 30 pg (28-32) 09/14/19 07:19 MCHC 34 % (30-34) 09/14/19 07:19 RDW 14.2 % (13.2-15.2) 09/14/19 07:19 Plt Count 232 K/mm3 (140-440) 09/14/19 07:19 Lymph % (Auto) 25.4 % (13.4-35.0) 09/14/19 07:19 [place] % (Auto) 9.0 % (0.0-7.3) H 09/14/19 07:19 Eos % (Auto) 3.5 % (0.0-4.3) 09/14/19 07:19 Baso % (Auto) 0.7 % (0.0-1.8) 09/14/19 07:19 Lymph # 1.8 K/mm3 (1.2-5.4) 09/14/19 07:19 [place] # 0.6 K/mm3 (0.0-0.8) 09/14/19 07:19 Eos # 0.3 K/mm3 (0.0-0.4) 09/14/19 07:19 Baso # 0.0 K/mm3 (0.0-0.1) 09/14/19 07:19 Seg Neutrophils % 61.4 % (40.0-70.0) 09/14/19 07:19 Seg Neutrophils # 4.4 K/mm3 (1.8-7.7) 09/14/19 07:19 Sodium 142 mmol/L (137-145) 09/17/19 04:39 Potassium 4.2 mmol/L (3.6-5.0) 09/17/19 04:39 Chloride 98.5 mmol/L (98-107) 09/17/19 04:39 Carbon Dioxide 31 mmol/L (22-30) H 09/17/19 04:39 Anion Gap 17 mmol/L 09/17/19 04:39 BUN 11 mg/dL (7-17) 09/17/19 04:39 Creatinine 1.0 mg/dL (0.7-1.2) 09/17/19 04:39 Estimated GFR 54 ml/min 09/17/19 04:39 BUN/Creatinine Ratio 11 % 09/17/19 04:39 Glucose 110 mg/dL (65-100) H 09/17/19 04:39 POC Glucose 99 (70-105) 09/14/19 01:16 Hemoglobin A1c 5.4 % (4-6) 09/14/19 07:19 Calcium 9.2 mg/dL (8.4-10.2) 09/17/19 04:39 Total Bilirubin 0.50 mg/dL (0.1-1.2) 09/14/19 07:19 AST 16 units/L (5-40) 09/14/19 07:19 ALT 11 units/L (7-56) 09/14/19 07:19 Alkaline Phosphatase 82 units/L (35-129) 09/14/19 07:19 Total Protein 7.2 g/dL (6.3-8.2) 09/14/19 07:19 Albumin 3.8 g/dL (3.9-5) L 09/14/19 07:19 Albumin/Globulin Ratio 1.1 % 09/14/19 07:19 Triglycerides 125 mg/dL (2-149) 09/14/19 07:19 Cholesterol 199 mg/dL (50-199) 09/14/19 07:19 LDL Cholesterol Direct 141 mg/dL (50-130) H 09/14/19 07:19 HDL Cholesterol 43 mg/dL (40-59) 09/14/19 07:19 Cholesterol/HDL Ratio 4.62 % 09/14/19 07:19 TSH 1.630 mlU/mL (0.270-4.200) 09/14/19 07:19 Last Vital Signs Temp 98.4 F 09/16/19 19:46 Pulse 64 09/16/19 19:46 Resp 20 09/16/19 19:46 BP 116/59 09/16/19 19:46 Pulse Ox 96 09/16/19 19:46
[2019-09-17] MEDS: METOPROLOL TARTRATE 50 MG TAB PO SCH (09:54)
[2019-09-17] MEDS: TIOTROPIUM 18 MCG CAP INHALATION IH SCH (10:25)
[2019-09-17] MEDS ORDERED: clonazePAM 0.5 MG TAB PO SCH (10:30)
[2019-09-17] MEDS ORDERED: FLUoxetine 20 MG/5 ML ORAL LIQD PO SCH (11:00)
[2019-09-17] MEDS: risperiDONE 0.25 MG TAB PO SCH (12:32)
[2019-09-17] MEDS: DIGOXIN 0.25 MG TAB PO SCH (17:55)
[2019-09-18] MEDS: hydrOXYzine HCL 25 MG TAB PO SCH ×3 (08:25→19:42)
[2019-09-18] MEDS: GABAPENTIN 300 MG CAP PO SCH ×3 (08:25→19:42)
--- NOTE | 2019-09-18 09:08 | Progress Note ---
Subjective Date of service: 09/18/19 Principal diagnosis: MDD (major depressive disorder), General Anxiety Subjective Comment: The patient's medical record was reviewed and the patient's progress was discussed with the nursing staff. During my interview with the patient this morning, she is sitting in the dayroom with other patients. She is a/o x 3. She says "I don't feel good." The patient says, "I'm nervous, and shaky. I'm scared." She holds her hands out to show me that she's shaking. She could not give any insight as to why she felt this way. She denies hallucinations of any kind. When asked about suicidal thoughts, the patient states, "I do wish I was . I don't like living like this." She says she slept "good." But states her appetite, is "not good." She states, "I think it's my nerves. I really don't know what it is." Reason for continued inpatient treatment: The patient is anxious, and has passive suicidal thoughts. REVIEW OF SYSTEMS Constitutional: Negative for weight loss ENT: Negative for stridor Respiratory: Negative for cough or hemoptysis All other systems reviewed and are negative MENTAL STATUS EXAMINATION General Appearance: Dressed appropriately Behavior: Anxious, cooperative. Mood: "nervous" Affect: Congruent with stated mood Speech: Normal tome and pace Thought Process: Goal directed Thought Content: Suicidal Ideation: Passive Homicidal Ideation: Denies Hallucinations: Denies Delusions: None elicited Insight and Judgment: Limited Memory/Cognition: Limited Assessment Major Depressive Disorder, Severe with Psychotic Features Generalized Anxiety Disorder Treatment Plan Patient will be admitted for inpatient psychiatric evaluation, medication adjustment and close monitoring The patient's behavior, mood, sleep and appetite will be closely monitored. Patient will be enrolled in individual and group therapeutic sessions and encouraged to attend. Patient will be provided with a safe and structured environment. Patient's physical health needs will be addressed by the Hospitalist. Hospitalist Consulted Labs including CBC, CMP, Lipid profile and Hemoglobin A1C ordered Social Assessment will be completed and the Power Superintendent will work with patient and family to ensure a suitable and safe disposition Medication adjustment will be made as clinically indicated Usual Wellness Amish/Preservation: Increased Prozac 40mg po daily Increased Klonopin 0.5mg po BID The patient agreed on the treatment plan, understood the risk, benefit, alternative treatment, potential consequence of no treatment, and gave informed consent. Estimated period of time patient will need to remain in the hospital: [4] Plan for post-hospital care: [Outpatient] Medications and Allergies Allergies Allergy/AdvReac Type Severity Reaction Status Date / Time No Known Drug Allergies Allergy Unknown Verified 09/13/19 21:50 Home Medications Medication Instructions Recorded Confirmed Last Taken Type Albuterol INH(or & Nicu Only) 90 mcg INHALATION Q4H PRN 09/14/19 09/14/19 Unknown History [ProAir HFA Inhaler] Budesonide [Pulmicort Respules] 0.5 neb BID 09/14/19 09/14/19 Unknown History Digoxin 250 mcg PO DAILY 09/14/19 09/14/19 Unknown History Docusate Sodium [Colace CAP] 100 mg PO BID 09/14/19 09/14/19 Unknown History FLUoxetine HCL [PROzac] 40 mg PO QDAY 09/14/19 09/14/19 Unknown History Flecainide [Tambocor] 50 mg PO BID 09/14/19 09/14/19 Unknown History Gabapentin 300 mg PO TID 09/14/19 09/14/19 Unknown History Metoprolol [Lopressor TAB] 50 mg PO DAILY 09/14/19 09/14/19 Unknown History QUEtiapine 50 mg PO HS 09/14/19 09/14/19 Unknown History methIMAzole [Tapazole] 5 mg PO DAILY 09/14/19 09/14/19 Unknown History traZODone 50 mg PO HS 09/14/19 09/14/19 Unknown History Active Meds: Active Medications Acetaminophen (Tylenol) 650 mg PO Q6H PRN PRN Reason: Pain, Mild (1-3) Last Admin: 09/16/19 06:11 Dose: 650 mg Documented by: Budesonide (Pulmicort) 0.5 mg IH BIDRT [facility] Last Admin: 09/17/19 10:30 Dose: 0.5 mg Documented by: Clonazepam (Klonopin) 0.25 mg PO DAILY [facility] Last Admin: 09/17/19 11:09 Dose: Not Given Documented by: Digoxin (Lanoxin) 0.25 mg PO DAILY@1700 [facility] Last Admin: 09/17/19 17:55 Dose: Not Given Documented by: Docusate Sodium (Colace) 100 mg PO BID [facility] Last Admin: 09/17/19 22:03 Dose: Not Given Documented by: Famotidine (Pepcid) 20 mg PO BID [facility] Last Admin: 09/17/19 21:58 Dose: 20 mg Documented by: Fish Oil (Fish Oil) 2,000 mg PO BID [facility] Last Admin: 09/17/19 21:58 Dose: 2,000 mg Documented by: Flecainide Acetate (Tambocor) 50 mg PO Q12HR [facility] Last Admin: 09/17/19 21:57 Dose: 50 mg Documented by: Fluoxetine HCl (Prozac) 30 mg PO QDAY [facility] Last Admin: 09/17/19 11:09 Dose: Not Given Documented by: Furosemide (Lasix) 20 mg PO QDAY [facility] Last Admin: 09/17/19 09:46 Dose: 20 mg Documented by: Gabapentin (Gabapentin) 300 mg PO TID [facility] Last Admin: 09/17/19 21:56 Dose: 300 mg Documented by: Hydroxyzine HCl (Atarax) 25 mg PO TID [facility] Last Admin: 09/17/19 22:22 Dose: Not Given Documented by: Loperamide HCl (Imodium) 2 mg PO Q2H PRN PRN Reason: Diarrhea Last Admin: 09/16/19 06:13 Dose: 2 mg Documented by: Melatonin (Melatonin) 5 mg PO QHS PRN PRN Reason: Sleep Methimazole (Tapazole) 5 mg PO DAILY [facility] Last Admin: 09/17/19 09:48 Dose: 5 mg Documented by: Metoprolol Tartrate (Metoprolol) 50 mg PO DAILY [facility] Last Admin: 09/17/19 09:54 Dose: 50 mg Documented by: Risperidone (Risperdal) 0.25 mg PO DAILY [facility] Last Admin: 09/17/19 12:32 Dose: 0.25 mg Documented by: Tiotropium [place] (Spiriva) 1 puff IH Q24HRT [facility] Last Admin: 09/17/19 10:25 Dose: 1 puff Documented by: Results - Results Labs/Vitals: Laboratory Last Values WBC 7.2 K/mm3 (4.5-11.0) 09/14/19 07:19 RBC 4.60 M/mm3 (3.65-5.03) 09/14/19 07:19 Hgb 13.6 gm/dl (10.1-14.3) 09/14/19 07:19 Hct 40.7 % (30.3-42.9) 09/14/19 07:19 MCV 88 fl (79-97) 09/14/19 07:19 MCH 30 pg (28-32) 09/14/19 07:19 MCHC 34 % (30-34) 09/14/19 07:19 RDW 14.2 % (13.2-15.2) 09/14/19 07:19 Plt Count 232 K/mm3 (140-440) 09/14/19 07:19 Lymph % (Auto) 25.4 % (13.4-35.0) 09/14/19 07:19 [place] % (Auto) 9.0 % (0.0-7.3) H 09/14/19 07:19 Eos % (Auto) 3.5 % (0.0-4.3) 09/14/19 07:19 Baso % (Auto) 0.7 % (0.0-1.8) 09/14/19 07:19 Lymph # 1.8 K/mm3 (1.2-5.4) 09/14/19 07:19 [place] # 0.6 K/mm3 (0.0-0.8) 09/14/19 07:19 Eos # 0.3 K/mm3 (0.0-0.4) 09/14/19 07:19 Baso # 0.0 K/mm3 (0.0-0.1) 09/14/19 07:19 Seg Neutrophils % 61.4 % (40.0-70.0) 09/14/19 07:19 Seg Neutrophils # 4.4 K/mm3 (1.8-7.7) 09/14/19 07:19 Sodium 142 mmol/L (137-145) 09/17/19 04:39 Potassium 4.2 mmol/L (3.6-5.0) 09/17/19 04:39 Chloride 98.5 mmol/L (98-107) 09/17/19 04:39 Carbon Dioxide 31 mmol/L (22-30) H 09/17/19 04:39 Anion Gap 17 mmol/L 09/17/19 04:39 BUN 11 mg/dL (7-17) 09/17/19 04:39 Creatinine 1.0 mg/dL (0.7-1.2) 09/17/19 04:39 Estimated GFR 54 ml/min 09/17/19 04:39 BUN/Creatinine Ratio 11 % 09/17/19 04:39 Glucose 110 mg/dL (65-100) H 09/17/19 04:39 POC Glucose 99 (70-105) 09/14/19 01:16 Hemoglobin A1c 5.4 % (4-6) 09/14/19 07:19 Calcium 9.2 mg/dL (8.4-10.2) 09/17/19 04:39 Total Bilirubin 0.50 mg/dL (0.1-1.2) 09/14/19 07:19 AST 16 units/L (5-40) 09/14/19 07:19 ALT 11 units/L (7-56) 09/14/19 07:19 Alkaline Phosphatase 82 units/L (35-129) 09/14/19 07:19 Total Protein 7.2 g/dL (6.3-8.2) 09/14/19 07:19 Albumin 3.8 g/dL (3.9-5) L 09/14/19 07:19 Albumin/Globulin Ratio 1.1 % 09/14/19 07:19 Triglycerides 125 mg/dL (2-149) 09/14/19 07:19 Cholesterol 199 mg/dL (50-199) 09/14/19 07:19 LDL Cholesterol Direct 141 mg/dL (50-130) H 09/14/19 07:19 HDL Cholesterol 43 mg/dL (40-59) 09/14/19 07:19 Cholesterol/HDL Ratio 4.62 % 09/14/19 07:19 TSH 1.630 mlU/mL (0.270-4.200) 09/14/19 07:19 Last Vital Signs Temp 97.4 F L 09/17/19 19:47 Pulse 60 09/17/19 19:47 Resp 18 09/17/19 19:47 BP 97/49 09/17/19 19:47 Pulse Ox 96 09/17/19 19:47
[2019-09-18] MEDS: DOCUSATE SODIUM 100 MG CAP PO SCH ×2 (09:19→21:14)
[2019-09-18] MEDS: FUROSEMIDE 20 MG TAB PO SCH (09:20)
[2019-09-18] MEDS: FAMOTIDINE 20 MG TAB PO SCH ×2 (09:20→21:13)
[2019-09-18] MEDS: risperiDONE 0.25 MG TAB PO SCH (09:21)
[2019-09-18] MEDS: FLECAINIDE 100 MG TAB PO SCH ×2 (09:22→21:13)
[2019-09-18] MEDS: OMEGA-3 FATTY ACIDS/FISH OIL 1 GRAM CAP PO SCH ×2 (09:23→21:13)
[2019-09-18] MEDS: TIOTROPIUM 18 MCG CAP INHALATION IH SCH (09:24)
[2019-09-18] MEDS: METOPROLOL TARTRATE 50 MG TAB PO SCH (09:24)
[2019-09-18] MEDS: methIMAzole 5 MG TAB PO SCH (09:25)
[2019-09-18] MEDS: FLUoxetine 20 MG/5 ML ORAL LIQD PO SCH (09:25)
[2019-09-18] MEDS: clonazePAM 0.5 MG TAB PO SCH ×2 (09:26→21:14)
[2019-09-18] MEDS: BUDESONIDE 0.5 MG/2 ML NEBU IH SCH ×2 (15:19→15:20)
[2019-09-18] MEDS: DIGOXIN 0.25 MG TAB PO SCH (17:20)
[2019-09-19] MEDS: BUDESONIDE 0.5 MG/2 ML NEBU IH SCH ×4 (07:02→20:00)
--- NOTE | 2019-09-19 08:12 | Progress Note ---
Subjective Date of service: 09/19/19 Principal diagnosis: MDD (major depressive disorder), General Anxiety Subjective Comment: The patient's medical record was reviewed and the patient's progress was discussed with the nursing staff. During my interview with the patient this morning, she is sitting in the dayroom with other patients. She is a/o x 3. She is dressed appropriately. She has good hygiene. She makes good eye contact. The patient appears in a better mood today. She states, "I feel a lot better today." She says, "I'm still shaking, and still feel a little anxious though." She denies SI/HI. She states, "I haven't thought about dying since yesterday." She denies hallucinations of any kind. Reason for continued inpatient treatment: The patient is improving, but still shows a lot of anxiety, and has passive suicidal thoughts often. Will continue to stabilize. REVIEW OF SYSTEMS Constitutional: Negative for weight loss ENT: Negative for stridor Respiratory: Negative for cough or hemoptysis All other systems reviewed and are negative MENTAL STATUS EXAMINATION General Appearance: Dressed appropriately Behavior: Calm and cooperative. Good eye contact. Mood: "anxious" Affect: Congruent with stated mood Speech: Normal tome and pace Thought Process: Goal directed Thought Content: Suicidal Ideation: Passive Homicidal Ideation: Denies Hallucinations: Denies Delusions: None elicited Insight and Judgment: Limited Memory/Cognition: Limited Assessment Major Depressive Disorder, Severe with Psychotic Features Generalized Anxiety Disorder Treatment Plan Patient will be admitted for inpatient psychiatric evaluation, medication adjustment and close monitoring The patient's behavior, mood, sleep and appetite will be closely monitored. Patient will be enrolled in individual and group therapeutic sessions and encouraged to attend. Patient will be provided with a safe and structured environment. Patient's physical health needs will be addressed by the Hospitalist. Hospitalist Consulted Labs including CBC, CMP, Lipid profile and Hemoglobin A1C ordered Social Assessment will be completed and the Electrical Products Engineer will work with patient and family to ensure a suitable and safe disposition Medication adjustment will be made as clinically indicated Usual Wellness Scientologist/Preservation: No changes today Increased meds yesterday The patient agreed on the treatment plan, understood the risk, benefit, alternative treatment, potential consequence of no treatment, and gave informed consent. Estimated period of time patient will need to remain in the hospital: [3] Plan for post-hospital care: [Outpatient] Medications and Allergies Allergies Allergy/AdvReac Type Severity Reaction Status Date / Time No Known Drug Allergies Allergy Unknown Verified 09/13/19 21:50 Home Medications Medication Instructions Recorded Confirmed Last Taken Type Albuterol INH(or & Nicu Only) 90 mcg INHALATION Q4H PRN 09/14/19 09/14/19 Unknown History [ProAir HFA Inhaler] Budesonide [Pulmicort Respules] 0.5 neb BID 09/14/19 09/14/19 Unknown History Digoxin 250 mcg PO DAILY 09/14/19 09/14/19 Unknown History Docusate Sodium [Colace CAP] 100 mg PO BID 09/14/19 09/14/19 Unknown History FLUoxetine HCL [PROzac] 40 mg PO QDAY 09/14/19 09/14/19 Unknown History Flecainide [Tambocor] 50 mg PO BID 09/14/19 09/14/19 Unknown History Gabapentin 300 mg PO TID 09/14/19 09/14/19 Unknown History Metoprolol [Lopressor TAB] 50 mg PO DAILY 09/14/19 09/14/19 Unknown History QUEtiapine 50 mg PO HS 09/14/19 09/14/19 Unknown History methIMAzole [Tapazole] 5 mg PO DAILY 09/14/19 09/14/19 Unknown History traZODone 50 mg PO HS 09/14/19 09/14/19 Unknown History Active Meds: Active Medications Acetaminophen (Tylenol) 650 mg PO Q6H PRN PRN Reason: Pain, Mild (1-3) Last Admin: 09/16/19 06:11 Dose: 650 mg Documented by: Budesonide (Pulmicort) 0.5 mg IH BIDRT [facility] Last Admin: 09/19/19 07:02 Dose: Not Given Documented by: Clonazepam (Klonopin) 0.25 mg PO BID [facility] Last Admin: 09/18/19 21:14 Dose: 0.25 mg Documented by: Digoxin (Lanoxin) 0.25 mg PO DAILY@1700 [facility] Last Admin: 09/18/19 17:20 Dose: Not Given Documented by: Docusate Sodium (Colace) 100 mg PO BID [facility] Last Admin: 09/18/19 21:14 Dose: Not Given Documented by: Famotidine (Pepcid) 20 mg PO BID [facility] Last Admin: 09/18/19 21:13 Dose: 20 mg Documented by: Fish Oil (Fish Oil) 2,000 mg PO BID [facility] Last Admin: 09/18/19 21:13 Dose: 2,000 mg Documented by: Flecainide Acetate (Tambocor) 50 mg PO Q12HR [facility] Last Admin: 09/18/19 21:13 Dose: 50 mg Documented by: Fluoxetine HCl (Prozac) 40 mg PO QDAY [facility] Last Admin: 09/18/19 09:25 Dose: 40 mg Documented by: Furosemide (Lasix) 20 mg PO QDAY [facility] Last Admin: 09/18/19 09:20 Dose: 20 mg Documented by: Gabapentin (Gabapentin) 300 mg PO TID [facility] Last Admin: 09/18/19 19:42 Dose: 300 mg Documented by: Hydroxyzine HCl (Atarax) 25 mg PO TID [facility] Last Admin: 09/18/19 19:42 Dose: 25 mg Documented by: Loperamide HCl (Imodium) 2 mg PO Q2H PRN PRN Reason: Diarrhea Last Admin: 09/16/19 06:13 Dose: 2 mg Documented by: Melatonin (Melatonin) 5 mg PO QHS PRN PRN Reason: Sleep Methimazole (Tapazole) 5 mg PO DAILY [facility] Last Admin: 09/18/19 09:25 Dose: 5 mg Documented by: Metoprolol Tartrate (Metoprolol) 50 mg PO DAILY [facility] Last Admin: 09/18/19 09:24 Dose: 50 mg Documented by: Risperidone (Risperdal) 0.25 mg PO DAILY [facility] Last Admin: 09/18/19 09:21 Dose: 0.25 mg Documented by: Tiotropium [place] (Spiriva) 1 puff IH Q24HRT [facility] Last Admin: 09/18/19 09:24 Dose: Not Given Documented by: Results - Results Labs/Vitals: Laboratory Last Values WBC 7.2 K/mm3 (4.5-11.0) 09/14/19 07:19 RBC 4.60 M/mm3 (3.65-5.03) 09/14/19 07:19 Hgb 13.6 gm/dl (10.1-14.3) 09/14/19 07:19 Hct 40.7 % (30.3-42.9) 09/14/19 07:19 MCV 88 fl (79-97) 09/14/19 07:19 MCH 30 pg (28-32) 09/14/19 07:19 MCHC 34 % (30-34) 09/14/19 07:19 RDW 14.2 % (13.2-15.2) 09/14/19 07:19 Plt Count 232 K/mm3 (140-440) 09/14/19 07:19 Lymph % (Auto) 25.4 % (13.4-35.0) 09/14/19 07:19 [place] % (Auto) 9.0 % (0.0-7.3) H 09/14/19 07:19 Eos % (Auto) 3.5 % (0.0-4.3) 09/14/19 07:19 Baso % (Auto) 0.7 % (0.0-1.8) 09/14/19 07:19 Lymph # 1.8 K/mm3 (1.2-5.4) 09/14/19 07:19 [place] # 0.6 K/mm3 (0.0-0.8) 09/14/19 07:19 Eos # 0.3 K/mm3 (0.0-0.4) 09/14/19 07:19 Baso # 0.0 K/mm3 (0.0-0.1) 09/14/19 07:19 Seg Neutrophils % 61.4 % (40.0-70.0) 09/14/19 07:19 Seg Neutrophils # 4.4 K/mm3 (1.8-7.7) 09/14/19 07:19 Sodium 142 mmol/L (137-145) 09/17/19 04:39 Potassium 4.2 mmol/L (3.6-5.0) 09/17/19 04:39 Chloride 98.5 mmol/L (98-107) 09/17/19 04:39 Carbon Dioxide 31 mmol/L (22-30) H 09/17/19 04:39 Anion Gap 17 mmol/L 09/17/19 04:39 BUN 11 mg/dL (7-17) 09/17/19 04:39 Creatinine 1.0 mg/dL (0.7-1.2) 09/17/19 04:39 Estimated GFR 54 ml/min 09/17/19 04:39 BUN/Creatinine Ratio 11 % 09/17/19 04:39 Glucose 110 mg/dL (65-100) H 09/17/19 04:39 POC Glucose 99 (70-105) 09/14/19 01:16 Hemoglobin A1c 5.4 % (4-6) 09/14/19 07:19 Calcium 9.2 mg/dL (8.4-10.2) 09/17/19 04:39 Total Bilirubin 0.50 mg/dL (0.1-1.2) 09/14/19 07:19 AST 16 units/L (5-40) 09/14/19 07:19 ALT 11 units/L (7-56) 09/14/19 07:19 Alkaline Phosphatase 82 units/L (35-129) 09/14/19 07:19 Total Protein 7.2 g/dL (6.3-8.2) 09/14/19 07:19 Albumin 3.8 g/dL (3.9-5) L 09/14/19 07:19 Albumin/Globulin Ratio 1.1 % 09/14/19 07:19 Triglycerides 125 mg/dL (2-149) 09/14/19 07:19 Cholesterol 199 mg/dL (50-199) 09/14/19 07:19 LDL Cholesterol Direct 141 mg/dL (50-130) H 09/14/19 07:19 HDL Cholesterol 43 mg/dL (40-59) 09/14/19 07:19 Cholesterol/HDL Ratio 4.62 % 09/14/19 07:19 TSH 1.630 mlU/mL (0.270-4.200) 09/14/19 07:19 Last Vital Signs Temp 98.6 F 09/18/19 19:32 Pulse 57 L 09/18/19 19:32 Resp 20 09/18/19 19:32 BP 101/48 09/18/19 19:32 Pulse Ox 97 09/18/19 19:32
[2019-09-19] MEDS: FUROSEMIDE 20 MG TAB PO SCH (09:49)
[2019-09-19] MEDS: METOPROLOL TARTRATE 50 MG TAB PO SCH (09:49)
[2019-09-19] MEDS: DOCUSATE SODIUM 100 MG CAP PO SCH ×3 (10:14→21:41)
[2019-09-19] MEDS: risperiDONE 0.25 MG TAB PO SCH (10:15)
[2019-09-19] MEDS: GABAPENTIN 300 MG CAP PO SCH ×3 (10:15→19:55)
[2019-09-19] MEDS: hydrOXYzine HCL 25 MG TAB PO SCH ×3 (10:15→19:55)
[2019-09-19] MEDS: FAMOTIDINE 20 MG TAB PO SCH ×2 (10:15→21:41)
[2019-09-19] MEDS: FLECAINIDE 100 MG TAB PO SCH ×2 (10:16→21:41)
[2019-09-19] MEDS: methIMAzole 5 MG TAB PO SCH (10:18)
[2019-09-19] MEDS: FLUoxetine 20 MG/5 ML ORAL LIQD PO SCH (10:19)
[2019-09-19] MEDS: clonazePAM 0.5 MG TAB PO SCH ×2 (10:19→21:41)
[2019-09-19] MEDS: OMEGA-3 FATTY ACIDS/FISH OIL 1 GRAM CAP PO SCH ×2 (10:20→21:41)
[2019-09-19] MEDS: TIOTROPIUM 18 MCG CAP INHALATION IH SCH ×2 (10:27→11:04)
[2019-09-19] MEDS: DIGOXIN 0.25 MG TAB PO SCH (17:39)
[2019-09-20] MEDS: GABAPENTIN 300 MG CAP PO SCH ×3 (07:46→20:10)
[2019-09-20] MEDS: hydrOXYzine HCL 25 MG TAB PO SCH ×3 (07:46→20:10)
--- NOTE | 2019-09-20 08:05 | Progress Note ---
Subjective Date of service: 09/20/19 Principal diagnosis: MDD (major depressive disorder), General Anxiety Subjective Comment: The patient's medical record was reviewed and the patient's progress was discussed with the nursing staff. The nurse note states the patient reported feeling anxious this morning. She was encouraged to use positive coping skill like deep breathing exercise. During my interview with the patient this morning, she is standing in her room at the sink. She is a/o x 3. She appears anxious. She states to me, "I feel panicked. I wake up like this every morning." She then says, "I'm afraid and scared. I need my medicine. I'm so afraid." The patient could not elaborate on why she felt afraid or nervous, she replied, "I don't know" when asked. She says she "slept some, but was up and down." She denies SI/HI, but states, "when I feel like this, I just don't want to be around." She denies hallucinations of any kind. Reason for continued inpatient treatment: The patient is improving, but still shows a lot of anxiety, and has passive suicidal thoughts often. Will continue to stabilize. REVIEW OF SYSTEMS Constitutional: Negative for weight loss ENT: Negative for stridor Respiratory: Negative for cough or hemoptysis All other systems reviewed and are negative MENTAL STATUS EXAMINATION General Appearance: Dressed appropriately Behavior: Anxious. Cooperative. Good eye contact. Mood: "Panicked. Anxious" Affect: Congruent with stated mood Speech: Normal tome and pace Thought Process: Goal directed Thought Content: Suicidal Ideation: Passive Homicidal Ideation: Denies Hallucinations: Denies Delusions: None elicited Insight and Judgment: Limited Memory/Cognition: Limited Assessment Major Depressive Disorder, Severe with Psychotic Features Generalized Anxiety Disorder Treatment Plan Patient will be admitted for inpatient psychiatric evaluation, medication adjustment and close monitoring The patient's behavior, mood, sleep and appetite will be closely monitored. Patient will be enrolled in individual and group therapeutic sessions and encouraged to attend. Patient will be provided with a safe and structured environment. Patient's physical health needs will be addressed by the Hospitalist. Hospitalist Consulted Labs including CBC, CMP, Lipid profile and Hemoglobin A1C ordered Social Assessment will be completed and the Email Engineer will work with patient and family to ensure a suitable and safe disposition Medication adjustment will be made as clinically indicated Usual Wellness [place]/Preservation: Buspar 7.5mg po BID to help control anxiety Increased Prozac 60mg po daily to decrease depression and anxiety The patient agreed on the treatment plan, understood the risk, benefit, alternative treatment, potential consequence of no treatment, and gave informed consent. Estimated period of time patient will need to remain in the hospital: [3] Plan for post-hospital care: [Outpatient] Medications and Allergies Allergies Allergy/AdvReac Type Severity Reaction Status Date / Time No Known Drug Allergies Allergy Unknown Verified 09/13/19 21:50 Home Medications Medication Instructions Recorded Confirmed Last Taken Type Albuterol INH(or & Nicu Only) 90 mcg INHALATION Q4H PRN 09/14/19 09/14/19 Unknown History [ProAir HFA Inhaler] Budesonide [Pulmicort Respules] 0.5 neb BID 09/14/19 09/14/19 Unknown History Digoxin 250 mcg PO DAILY 09/14/19 09/14/19 Unknown History Docusate Sodium [Colace CAP] 100 mg PO BID 09/14/19 09/14/19 Unknown History FLUoxetine HCL [PROzac] 40 mg PO QDAY 09/14/19 09/14/19 Unknown History Flecainide [Tambocor] 50 mg PO BID 09/14/19 09/14/19 Unknown History Gabapentin 300 mg PO TID 09/14/19 09/14/19 Unknown History Metoprolol [Lopressor TAB] 50 mg PO DAILY 09/14/19 09/14/19 Unknown History QUEtiapine 50 mg PO HS 09/14/19 09/14/19 Unknown History methIMAzole [Tapazole] 5 mg PO DAILY 09/14/19 09/14/19 Unknown History traZODone 50 mg PO HS 09/14/19 09/14/19 Unknown History Active Meds: Active Medications Acetaminophen (Tylenol) 650 mg PO Q6H PRN PRN Reason: Pain, Mild (1-3) Last Admin: 09/16/19 06:11 Dose: 650 mg Documented by: Budesonide (Pulmicort) 0.5 mg IH BIDRT [facility] Last Admin: 09/19/19 20:00 Dose: Not Given Documented by: Clonazepam (Klonopin) 0.25 mg PO BID [facility] Last Admin: 09/19/19 21:41 Dose: 0.25 mg Documented by: Digoxin (Lanoxin) 0.25 mg PO DAILY@1700 [facility] Last Admin: 09/19/19 17:39 Dose: 0.25 mg Documented by: Docusate Sodium (Colace) 100 mg PO BID [facility] Last Admin: 09/19/19 21:41 Dose: Not Given Documented by: Famotidine (Pepcid) 20 mg PO BID [facility] Last Admin: 09/19/19 21:41 Dose: 20 mg Documented by: Fish Oil (Fish Oil) 2,000 mg PO BID [facility] Last Admin: 09/19/19 21:41 Dose: 2,000 mg Documented by: Flecainide Acetate (Tambocor) 50 mg PO Q12HR [facility] Last Admin: 09/19/19 21:41 Dose: 50 mg Documented by: Fluoxetine HCl (Prozac) 40 mg PO QDAY [facility] Last Admin: 09/19/19 10:19 Dose: 40 mg Documented by: Furosemide (Lasix) 20 mg PO QDAY [facility] Last Admin: 09/19/19 09:49 Dose: Not Given Documented by: Gabapentin (Gabapentin) 300 mg PO TID [facility] Last Admin: 09/20/19 07:46 Dose: 300 mg Documented by: Hydroxyzine HCl (Atarax) 25 mg PO TID [facility] Last Admin: 09/20/19 07:46 Dose: 25 mg Documented by: Loperamide HCl (Imodium) 2 mg PO Q2H PRN PRN Reason: Diarrhea Last Admin: 09/16/19 06:13 Dose: 2 mg Documented by: Melatonin (Melatonin) 5 mg PO QHS PRN PRN Reason: Sleep Methimazole (Tapazole) 5 mg PO DAILY [facility] Last Admin: 09/19/19 10:18 Dose: 5 mg Documented by: Metoprolol Tartrate (Metoprolol) 50 mg PO DAILY [facility] Last Admin: 09/19/19 09:49 Dose: Not Given Documented by: Risperidone (Risperdal) 0.25 mg PO DAILY [facility] Last Admin: 09/19/19 10:15 Dose: 0.25 mg Documented by: Tiotropium [place] (Spiriva) 1 puff IH Q24HRT [facility] Last Admin: 09/19/19 11:04 Dose: 1 puff Documented by: Results - Results Labs/Vitals: Laboratory Last Values WBC 7.2 K/mm3 (4.5-11.0) 09/14/19 07:19 RBC 4.60 M/mm3 (3.65-5.03) 09/14/19 07:19 Hgb 13.6 gm/dl (10.1-14.3) 09/14/19 07:19 Hct 40.7 % (30.3-42.9) 09/14/19 07:19 MCV 88 fl (79-97) 09/14/19 07:19 MCH 30 pg (28-32) 09/14/19 07:19 MCHC 34 % (30-34) 09/14/19 07:19 RDW 14.2 % (13.2-15.2) 09/14/19 07:19 Plt Count 232 K/mm3 (140-440) 09/14/19 07:19 Lymph % (Auto) 25.4 % (13.4-35.0) 09/14/19 07:19 [place] % (Auto) 9.0 % (0.0-7.3) H 09/14/19 07:19 Eos % (Auto) 3.5 % (0.0-4.3) 09/14/19 07:19 Baso % (Auto) 0.7 % (0.0-1.8) 09/14/19 07:19 Lymph # 1.8 K/mm3 (1.2-5.4) 09/14/19 07:19 [place] # 0.6 K/mm3 (0.0-0.8) 09/14/19 07:19 Eos # 0.3 K/mm3 (0.0-0.4) 09/14/19 07:19 Baso # 0.0 K/mm3 (0.0-0.1) 09/14/19 07:19 Seg Neutrophils % 61.4 % (40.0-70.0) 09/14/19 07:19 Seg Neutrophils # 4.4 K/mm3 (1.8-7.7) 09/14/19 07:19 Sodium 142 mmol/L (137-145) 09/17/19 04:39 Potassium 4.2 mmol/L (3.6-5.0) 09/17/19 04:39 Chloride 98.5 mmol/L (98-107) 09/17/19 04:39 Carbon Dioxide 31 mmol/L (22-30) H 09/17/19 04:39 Anion Gap 17 mmol/L 09/17/19 04:39 BUN 11 mg/dL (7-17) 09/17/19 04:39 Creatinine 1.0 mg/dL (0.7-1.2) 09/17/19 04:39 Estimated GFR 54 ml/min 09/17/19 04:39 BUN/Creatinine Ratio 11 % 09/17/19 04:39 Glucose 110 mg/dL (65-100) H 09/17/19 04:39 POC Glucose 99 (70-105) 09/14/19 01:16 Hemoglobin A1c 5.4 % (4-6) 09/14/19 07:19 Calcium 9.2 mg/dL (8.4-10.2) 09/17/19 04:39 Total Bilirubin 0.50 mg/dL (0.1-1.2) 09/14/19 07:19 AST 16 units/L (5-40) 09/14/19 07:19 ALT 11 units/L (7-56) 09/14/19 07:19 Alkaline Phosphatase 82 units/L (35-129) 09/14/19 07:19 Total Protein 7.2 g/dL (6.3-8.2) 09/14/19 07:19 Albumin 3.8 g/dL (3.9-5) L 09/14/19 07:19 Albumin/Globulin Ratio 1.1 % 09/14/19 07:19 Triglycerides 125 mg/dL (2-149) 09/14/19 07:19 Cholesterol 199 mg/dL (50-199) 09/14/19 07:19 LDL Cholesterol Direct 141 mg/dL (50-130) H 09/14/19 07:19 HDL Cholesterol 43 mg/dL (40-59) 09/14/19 07:19 Cholesterol/HDL Ratio 4.62 % 09/14/19 07:19 TSH 1.630 mlU/mL (0.270-4.200) 09/14/19 07:19 Last Vital Signs Temp 98.4 F 09/19/19 19:30 Pulse 74 09/19/19 19:30 Resp 20 09/19/19 19:30 BP 111/61 09/19/19 19:30 Pulse Ox 97 09/19/19 19:30
[2019-09-20] MEDS: busPIRone 5 MG TAB PO SCH ×2 (09:38→21:25)
[2019-09-20] MEDS: clonazePAM 0.5 MG TAB PO SCH ×2 (09:39→21:28)
[2019-09-20] MEDS: FAMOTIDINE 20 MG TAB PO SCH ×2 (09:40→21:29)
[2019-09-20] MEDS: DOCUSATE SODIUM 100 MG CAP PO SCH ×3 (09:40→23:41)
[2019-09-20] MEDS: risperiDONE 0.25 MG TAB PO SCH (09:41)
[2019-09-20] MEDS: FUROSEMIDE 20 MG TAB PO SCH (09:41)
[2019-09-20] MEDS: OMEGA-3 FATTY ACIDS/FISH OIL 1 GRAM CAP PO SCH ×2 (09:42→21:25)
[2019-09-20] MEDS: methIMAzole 5 MG TAB PO SCH (09:43)
[2019-09-20] MEDS: FLECAINIDE 100 MG TAB PO SCH ×2 (09:43→21:27)
[2019-09-20] MEDS: FLUoxetine 20 MG/5 ML ORAL LIQD PO SCH (09:44)
[2019-09-20] MEDS: METOPROLOL TARTRATE 50 MG TAB PO SCH (10:52)
[2019-09-20] MEDS: BUDESONIDE 0.5 MG/2 ML NEBU IH SCH (11:28)
[2019-09-20] MEDS: TIOTROPIUM 18 MCG CAP INHALATION IH SCH (11:28)
[2019-09-20] MEDS: DIGOXIN 0.25 MG TAB PO SCH (17:17)
[2019-09-21] MEDS: BUDESONIDE 0.5 MG/2 ML NEBU IH SCH ×2 (01:19→12:31)
--- NOTE | 2019-09-21 07:50 | Progress Note ---
Subjective Date of service: 09/21/19 Principal diagnosis: MDD (major depressive disorder), General Anxiety Subjective Comment: The patient's medical record was reviewed and the patient's progress was discussed with the nursing staff. During my interview with the patient this morning, she is sitting on side of the bed. She is a/o x 3. She is anxious. The patient says, "my heart is beating too fast. My anxiety is back up." She states, "I slept good, but when I wake up, I feel awful." She then says, "I don't know where I am or what's going on when I wake up." She denies SI/HI or hallucinations of any kind. She says, "but I do feel better than what I did when I first came here." She says her appetite is "a little better." Reason for continued inpatient treatment: The patient has improved significantly, but still shows a lot of anxiety. Will continue to stabilize. REVIEW OF SYSTEMS Constitutional: Negative for weight loss ENT: Negative for stridor Respiratory: Negative for cough or hemoptysis All other systems reviewed and are negative MENTAL STATUS EXAMINATION General Appearance: Dressed appropriately Behavior: Anxious. Cooperative. Good eye contact. Mood: "Anxious" Affect: Congruent with stated mood Speech: Normal tome and pace Thought Process: Goal directed Thought Content: Suicidal Ideation: Denies Homicidal Ideation: Denies Hallucinations: Denies Delusions: None elicited Insight and Judgment: Limited Memory/Cognition: Limited Assessment Major Depressive Disorder, Severe with Psychotic Features Generalized Anxiety Disorder Treatment Plan Patient will be admitted for inpatient psychiatric evaluation, medication adjustment and close monitoring The patient's behavior, mood, sleep and appetite will be closely monitored. Patient will be enrolled in individual and group therapeutic sessions and encouraged to attend. Patient will be provided with a safe and structured environment. Patient's physical health needs will be addressed by the Hospitalist. Hospitalist Consulted Labs including CBC, CMP, Lipid profile and Hemoglobin A1C ordered Social Assessment will be completed and the Director Trust will work with patient and family to ensure a suitable and safe disposition Medication adjustment will be made as clinically indicated Usual Wellness [place]/Preservation: Increased Buspar 10mg po BID to help control anxiety The patient agreed on the treatment plan, understood the risk, benefit, alternative treatment, potential consequence of no treatment, and gave informed consent. Estimated period of time patient will need to remain in the hospital: [3] Plan for post-hospital care: [Outpatient] Medications and Allergies Allergies Allergy/AdvReac Type Severity Reaction Status Date / Time No Known Drug Allergies Allergy Unknown Verified 09/13/19 21:50 Home Medications Medication Instructions Recorded Confirmed Last Taken Type Albuterol INH(or & Nicu Only) 90 mcg INHALATION Q4H PRN 09/14/19 09/14/19 Unknown History [ProAir HFA Inhaler] Budesonide [Pulmicort Respules] 0.5 neb BID 09/14/19 09/14/19 Unknown History Digoxin 250 mcg PO DAILY 09/14/19 09/14/19 Unknown History Docusate Sodium [Colace CAP] 100 mg PO BID 09/14/19 09/14/19 Unknown History FLUoxetine HCL [PROzac] 40 mg PO QDAY 09/14/19 09/14/19 Unknown History Flecainide [Tambocor] 50 mg PO BID 09/14/19 09/14/19 Unknown History Gabapentin 300 mg PO TID 09/14/19 09/14/19 Unknown History Metoprolol [Lopressor TAB] 50 mg PO DAILY 09/14/19 09/14/19 Unknown History QUEtiapine 50 mg PO HS 09/14/19 09/14/19 Unknown History methIMAzole [Tapazole] 5 mg PO DAILY 09/14/19 09/14/19 Unknown History traZODone 50 mg PO HS 09/14/19 09/14/19 Unknown History Active Meds: Active Medications Acetaminophen (Tylenol) 650 mg PO Q6H PRN PRN Reason: Pain, Mild (1-3) Last Admin: 09/16/19 06:11 Dose: 650 mg Documented by: Budesonide (Pulmicort) 0.5 mg IH BIDRT [facility] Last Admin: 09/21/19 01:19 Dose: Not Given Documented by: Buspirone HCl (Buspar) 7.5 mg PO BID [facility] Last Admin: 09/20/19 21:25 Dose: 7.5 mg Documented by: Clonazepam (Klonopin) 0.25 mg PO BID [facility] Last Admin: 09/20/19 21:28 Dose: 0.25 mg Documented by: Digoxin (Lanoxin) 0.25 mg PO DAILY@1700 [facility] Last Admin: 09/20/19 17:17 Dose: Not Given Documented by: Docusate Sodium (Colace) 100 mg PO BID [facility] Last Admin: 09/20/19 23:41 Dose: Not Given Documented by: Famotidine (Pepcid) 20 mg PO BID [facility] Last Admin: 09/20/19 21:29 Dose: 20 mg Documented by: Fish Oil (Fish Oil) 2,000 mg PO BID [facility] Last Admin: 09/20/19 21:25 Dose: 2,000 mg Documented by: Flecainide Acetate (Tambocor) 50 mg PO Q12HR [facility] Last Admin: 09/20/19 21:27 Dose: 50 mg Documented by: Fluoxetine HCl (Prozac) 60 mg PO QDAY [facility] Last Admin: 09/20/19 09:44 Dose: 60 mg Documented by: Furosemide (Lasix) 20 mg PO QDAY [facility] Last Admin: 09/20/19 09:41 Dose: 20 mg Documented by: Gabapentin (Gabapentin) 300 mg PO TID [facility] Last Admin: 09/20/19 20:10 Dose: 300 mg Documented by: Hydroxyzine HCl (Atarax) 25 mg PO TID [facility] Last Admin: 09/20/19 20:10 Dose: 25 mg Documented by: Loperamide HCl (Imodium) 2 mg PO Q2H PRN PRN Reason: Diarrhea Last Admin: 09/16/19 06:13 Dose: 2 mg Documented by: Melatonin (Melatonin) 5 mg PO QHS PRN PRN Reason: Sleep Methimazole (Tapazole) 5 mg PO DAILY [facility] Last Admin: 09/20/19 09:43 Dose: 5 mg Documented by: Metoprolol Tartrate (Metoprolol) 50 mg PO DAILY [facility] Last Admin: 09/20/19 10:52 Dose: 50 mg Documented by: Risperidone (Risperdal) 0.25 mg PO DAILY [facility] Last Admin: 09/20/19 09:41 Dose: 0.25 mg Documented by: Tiotropium [place] (Spiriva) 1 puff IH Q24HRT [facility] Last Admin: 09/20/19 11:28 Dose: 1 puff Documented by: Results - Results Labs/Vitals: Laboratory Last Values WBC 7.2 K/mm3 (4.5-11.0) 09/14/19 07:19 RBC 4.60 M/mm3 (3.65-5.03) 09/14/19 07:19 Hgb 13.6 gm/dl (10.1-14.3) 09/14/19 07:19 Hct 40.7 % (30.3-42.9) 09/14/19 07:19 MCV 88 fl (79-97) 09/14/19 07:19 MCH 30 pg (28-32) 09/14/19 07:19 MCHC 34 % (30-34) 09/14/19 07:19 RDW 14.2 % (13.2-15.2) 09/14/19 07:19 Plt Count 232 K/mm3 (140-440) 09/14/19 07:19 Lymph % (Auto) 25.4 % (13.4-35.0) 09/14/19 07:19 [place] % (Auto) 9.0 % (0.0-7.3) H 09/14/19 07:19 Eos % (Auto) 3.5 % (0.0-4.3) 09/14/19 07:19 Baso % (Auto) 0.7 % (0.0-1.8) 09/14/19 07:19 Lymph # 1.8 K/mm3 (1.2-5.4) 09/14/19 07:19 [place] # 0.6 K/mm3 (0.0-0.8) 09/14/19 07:19 Eos # 0.3 K/mm3 (0.0-0.4) 09/14/19 07:19 Baso # 0.0 K/mm3 (0.0-0.1) 09/14/19 07:19 Seg Neutrophils % 61.4 % (40.0-70.0) 09/14/19 07:19 Seg Neutrophils # 4.4 K/mm3 (1.8-7.7) 09/14/19 07:19 Sodium 142 mmol/L (137-145) 09/17/19 04:39 Potassium 4.2 mmol/L (3.6-5.0) 09/17/19 04:39 Chloride 98.5 mmol/L (98-107) 09/17/19 04:39 Carbon Dioxide 31 mmol/L (22-30) H 09/17/19 04:39 Anion Gap 17 mmol/L 09/17/19 04:39 BUN 11 mg/dL (7-17) 09/17/19 04:39 Creatinine 1.0 mg/dL (0.7-1.2) 09/17/19 04:39 Estimated GFR 54 ml/min 09/17/19 04:39 BUN/Creatinine Ratio 11 % 09/17/19 04:39 Glucose 110 mg/dL (65-100) H 09/17/19 04:39 POC Glucose 99 (70-105) 09/14/19 01:16 Hemoglobin A1c 5.4 % (4-6) 09/14/19 07:19 Calcium 9.2 mg/dL (8.4-10.2) 09/17/19 04:39 Total Bilirubin 0.50 mg/dL (0.1-1.2) 09/14/19 07:19 AST 16 units/L (5-40) 09/14/19 07:19 ALT 11 units/L (7-56) 09/14/19 07:19 Alkaline Phosphatase 82 units/L (35-129) 09/14/19 07:19 Total Protein 7.2 g/dL (6.3-8.2) 09/14/19 07:19 Albumin 3.8 g/dL (3.9-5) L 09/14/19 07:19 Albumin/Globulin Ratio 1.1 % 09/14/19 07:19 Triglycerides 125 mg/dL (2-149) 09/14/19 07:19 Cholesterol 199 mg/dL (50-199) 09/14/19 07:19 LDL Cholesterol Direct 141 mg/dL (50-130) H 09/14/19 07:19 HDL Cholesterol 43 mg/dL (40-59) 09/14/19 07:19 Cholesterol/HDL Ratio 4.62 % 09/14/19 07:19 TSH 1.630 mlU/mL (0.270-4.200) 09/14/19 07:19 Last Vital Signs Temp 97.8 F 09/20/19 08:53 Pulse 59 L 09/20/19 19:11 Resp 18 09/20/19 11:29 BP 103/53 09/20/19 17:18 Pulse Ox 92 09/20/19 19:11
[2019-09-21] MEDS: hydrOXYzine HCL 25 MG TAB PO SCH ×3 (07:56→21:26)
[2019-09-21] MEDS: GABAPENTIN 300 MG CAP PO SCH ×3 (07:56→21:27)
[2019-09-21] MEDS: FLUoxetine 20 MG/5 ML ORAL LIQD PO SCH (09:37)
[2019-09-21] MEDS: FLECAINIDE 100 MG TAB PO SCH ×2 (09:38→21:26)
[2019-09-21] MEDS: FAMOTIDINE 20 MG TAB PO SCH ×2 (09:38→21:26)
[2019-09-21] MEDS: methIMAzole 5 MG TAB PO SCH (09:38)
[2019-09-21] MEDS: clonazePAM 0.5 MG TAB PO SCH ×2 (09:38→21:27)
[2019-09-21] MEDS: METOPROLOL TARTRATE 50 MG TAB PO SCH (09:39)
[2019-09-21] MEDS: OMEGA-3 FATTY ACIDS/FISH OIL 1 GRAM CAP PO SCH ×2 (09:39→21:26)
[2019-09-21] MEDS: busPIRone 5 MG TAB PO SCH ×2 (09:39→21:25)
[2019-09-21] MEDS: FUROSEMIDE 20 MG TAB PO SCH (09:39)
[2019-09-21] MEDS: DOCUSATE SODIUM 100 MG CAP PO SCH ×2 (09:39→21:27)
[2019-09-21] MEDS: risperiDONE 0.25 MG TAB PO SCH (09:53)
[2019-09-21] MEDS: TIOTROPIUM 18 MCG CAP INHALATION IH SCH (12:33)
[2019-09-21] MEDS: DIGOXIN 0.25 MG TAB PO SCH (16:39)
--- NOTE | 2019-09-22 08:23 | Discharge Summary ---
Providers - Providers Date of Admission: 09/13/19 21:54 Date of discharge: 09/22/19 Attending physician: LEAH LINDSAY MD 09/13/19 21:54 Consult to Physician [CONS] Routine Comment: Consulting Provider: JOHN WOLF Physician Instructions: Reason For Exam: H&P 09/16/19 08:33 Consult to Dietitian/Nutrition [CONS] Routine Physician Instructions: Reason For Exam: Reason for Consult: Poor oral intake Primary care physician: ACCOUNT MANAGER RELIEF Hospitalization Condition: Stable Hospital course: The patient was provided inpatient psychiatric treatment with safe and supportive care, medication adjustment, adverse effect monitoring, medical evaluations, medical treatments, assessment and psycho-education. The patient's mood, cognition, behavior, moral support are improved and stabilized. At the time of discharge, the patient had no endangering behavior and no debilitating adverse effects. The patient agreed on potential consequences of no treatment and gave informed consent. [facility] Time spent for discharge: 35 Allergies/Adverse Reactions: Allergies No Known Drug Allergies Allergy (Verified 09/13/19 21:50) Unknown Vital Signs: Last Vital Signs Temp 98.6 F 09/22/19 07:18 Pulse 80 09/22/19 07:18 Resp 18 09/22/19 07:18 BP 141/77 09/22/19 07:18 Pulse Ox 95 09/22/19 07:18 Last Lab: Laboratory Last Values WBC 7.2 K/mm3 (4.5-11.0) 09/14/19 07:19 RBC 4.60 M/mm3 (3.65-5.03) 09/14/19 07:19 Hgb 13.6 gm/dl (10.1-14.3) 09/14/19 07:19 Hct 40.7 % (30.3-42.9) 09/14/19 07:19 MCV 88 fl (79-97) 09/14/19 07:19 MCH 30 pg (28-32) 09/14/19 07:19 MCHC 34 % (30-34) 09/14/19 07:19 RDW 14.2 % (13.2-15.2) 09/14/19 07:19 Plt Count 232 K/mm3 (140-440) 09/14/19 07:19 Lymph % (Auto) 25.4 % (13.4-35.0) 09/14/19 07:19 [place] % (Auto) 9.0 % (0.0-7.3) H 09/14/19 07:19 Eos % (Auto) 3.5 % (0.0-4.3) 09/14/19 07:19 Baso % (Auto) 0.7 % (0.0-1.8) 09/14/19 07:19 Lymph # 1.8 K/mm3 (1.2-5.4) 09/14/19 07:19 [place] # 0.6 K/mm3 (0.0-0.8) 09/14/19 07:19 Eos # 0.3 K/mm3 (0.0-0.4) 09/14/19 07: Baso # 0.0 K/mm3 (0.0-0.1) 09/14/19 07:19 Seg Neutrophils % 61.4 % (40.0-70.0) 09/14/19 07:19 Seg Neutrophils # 4.4 K/mm3 (1.8-7.7) 09/14/19 07:19 Sodium 142 mmol/L (137-145) 09/17/19 04:39 Potassium 4.2 mmol/L (3.6-5.0) 09/17/19 04:39 Chloride 98.5 mmol/L (98-107) 09/17/19 04:39 Carbon Dioxide 31 mmol/L (22-30) H 09/17/19 04:39 Anion Gap 17 mmol/L 09/17/19 04:39 BUN 11 mg/dL (7-17) 09/17/19 04:39 Creatinine 1.0 mg/dL (0.7-1.2) 09/17/19 04:39 Estimated GFR 54 ml/min 09/17/19 04:39 BUN/Creatinine Ratio 11 % 09/17/19 04:39 Glucose 110 mg/dL (65-100) H 09/17/19 04:39 POC Glucose 99 (70-105) 09/14/19 01:16 Hemoglobin A1c 5.4 % (4-6) 09/14/19 07:19 Calcium 9.2 mg/dL (8.4-10.2) 09/17/19 04:39 Total Bilirubin 0.50 mg/dL (0.1-1.2) 09/14/19 07:19 AST 16 units/L (5-40) 09/14/19 07:19 ALT 11 units/L (7-56) 09/14/19 07:19 Alkaline Phosphatase 82 units/L (35-129) 09/14/19 07:19 Total Protein 7.2 g/dL (6.3-8.2) 09/14/19 07:19 Albumin 3.8 g/dL (3.9-5) L 09/14/19 07:19 Albumin/Globulin Ratio 1.1 % 09/14/19 07:19 Triglycerides 125 mg/dL (2-149) 09/14/19 07:19 Cholesterol 199 mg/dL (50-199) 09/14/19 07:19 LDL Cholesterol Direct 141 mg/dL (50-130) H 09/14/19 07:19 HDL Cholesterol 43 mg/dL (40-59) 09/14/19 07:19 Cholesterol/HDL Ratio 4.62 % 09/14/19 07:19 TSH 1.630 mlU/mL (0.270-4.200) 09/14/19 07:19 Core Measure Documentation - Palliative Care Palliative Care/ Comfort Measures: Not Applicable - Core Measures Any of the following diagnoses?: none Exam - Constitutional Vitals: Temp Pulse Resp BP Pulse Ox 98.6 F 80 18 141/77 95 09/22/19 07:18 09/22/19 07:18 09/22/19 07:18 09/22/19 07:18 09/22/19 07:18 General appearance: Present: no acute distress, mild distress - EENT Eyes: Present: PERRL, EOM intact ENT: hearing intact, clear oral mucosa - Neck Neck: Present: supple, normal ROM - Respiratory Respiratory effort: normal Plan Activity: advance as tolerated Weight Bearing Status: Weight Bear as Tolerated Care Plan Goals: Maintain good and stable mental health Plan of Treatment: The patient should be compliant with medications, not to use drugs, and not to drink alcohol. The SNF understands that if suicidal ideas, homicidal ideas or any endangering feeling arise, the staff/Patient should seek assistance including, but not limited to crisis hotline, and emergency room. Follow up with: PRIMARY CARE, [Primary Care Provider] - 7 Days Prescriptions: hydrOXYzine HCL [Atarax] 25 mg PO TID #90 tablet busPIRone [Buspar] 10 mg PO BID #60 tablet clonazePAM [KlonoPIN] 0.25 mg PO BID #30 tablet Furosemide [Lasix TAB] 20 mg PO QDAY #30 tablet Famotidine [Pepcid] 20 mg PO BID #60 tablet risperiDONE [RisperDAL] 0.25 mg PO DAILY #60 tablet
[2019-09-22] MEDS: TIOTROPIUM 18 MCG CAP INHALATION IH SCH (10:00)
[2019-09-22] MEDS: BUDESONIDE 0.5 MG/2 ML NEBU IH SCH ×2 (10:03→10:18)
[2019-09-22] MEDS: OMEGA-3 FATTY ACIDS/FISH OIL 1 GRAM CAP PO SCH (10:52)
[2019-09-22] MEDS: busPIRone 5 MG TAB PO SCH (10:52)
[2019-09-22] MEDS: METOPROLOL TARTRATE 50 MG TAB PO SCH (10:53)
[2019-09-22] MEDS: hydrOXYzine HCL 25 MG TAB PO SCH ×2 (10:53→13:55)
[2019-09-22] MEDS: FAMOTIDINE 20 MG TAB PO SCH (10:53)
[2019-09-22] MEDS: clonazePAM 0.5 MG TAB PO SCH (10:53)
[2019-09-22] MEDS: risperiDONE 0.25 MG TAB PO SCH (10:53)
[2019-09-22] MEDS: FLECAINIDE 100 MG TAB PO SCH (10:54)
[2019-09-22] MEDS: methIMAzole 5 MG TAB PO SCH (10:54)
[2019-09-22] MEDS: DOCUSATE SODIUM 100 MG CAP PO SCH (10:55)
[2019-09-22] MEDS: FLUoxetine 20 MG/5 ML ORAL LIQD PO SCH (10:58)
[2019-09-22] MEDS: GABAPENTIN 300 MG CAP PO SCH ×2 (11:18→13:54)
[2019-09-22] MEDS: FUROSEMIDE 20 MG TAB PO SCH (11:18)
[2019-09-22 11:19] VITALS: BP 144/75
== END 2019-09-22 15:59 | DRG 885 ==
LOC: 3A 21:29 → UNDOADMIN 21:29 → 5A 21:54
PROVIDERS: ADMIT Psychiatry & Neurology Psychiatry; ATTEND Psychiatry & Neurology Psychiatry
DX: F32.3 Major depressive disorder, single episode, severe with psychotic features (principal); F41.9 Anxiety disorder, unspecified; Z20.828 Contact with and (suspected) exposure to other viral communicable diseases; J44.9 Chronic obstructive pulmonary disease, unspecified; I48.91 Unspecified atrial fibrillation; I50.9 Heart failure, unspecified; E03.9 Hypothyroidism, unspecified; F41.1 Generalized anxiety disorder; Z79.51 Long term (current) use of inhaled steroids; Z79.899 Other long term (current) drug therapy; Z66 Do not resuscitate
CPT/HCPCS: 36415; 80048; 80053; 80061; 82962; 83036; 84443; 85025; 94640; 94760; G0378; U0003-CS